=== PATIENT | female | born 1935 | race Caucasian/White ===

== ENCOUNTER 2016-10-15 15:33 | Inpatient (IN) | payer MEDICARE, OTHER, MEDICAID ==
--- NOTE | 2016-10-15 15:49 | ER Document Report ---
ED Medical Screen (RME) - General Chief Complaint: Breathing Difficulty Stated Complaint: DIFFICULTY BREATHING Mode of Arrival: Wheelchair Information source: Patient Notes: 81 y/o F presents to ED c/o sob over the last month. Reports is worse with exertion and laying down. Denies fever or chest pain. Shallow breaths in RME. I have greeted and performed a rapid initial assessment of this patient. A comprehensive ED assessment and evaluation of the patient, analysis of test results and completion of the medical decision making process will be conducted by additional ED providers. TRAVEL OUTSIDE OF THE [place] IN LAST 30 DAYS: No - Related Data Allergies/Adverse Reactions: No Known Allergies Allergy (Verified 10/15/16 15:40) Past Medical History - Social History Chew tobacco use (# tins/day): No Frequency of alcohol use: None Drug Abuse: None - Past Medical History Cardiac Medical History: Reports: Hx Hypertension Denies: Hx Coronary Artery Disease, Hx Heart Attack - BAD HEART VALVES, STENTS X5 Pulmonary Medical History: Reports: Hx COPD, Hx Pneumonia - HX Denies: Hx Asthma, Hx Bronchitis Neurological Medical History: Denies: Hx Cerebrovascular Accident, Hx Seizures Renal/ Medical History: Denies: Hx Peritoneal Dialysis Musculoskeltal Medical History: Reports Hx Arthritis Psychiatric Medical History: Denies: Hx Depression Past Surgical History: Reports: Hx Hysterectomy - Immunizations Hx Diphtheria, Pertussis, Tetanus Vaccination: Yes Physical Exam - General General appearance: Alert In distress: None - Respiratory Respiratory status: Labored - shallow Breath sounds: No: Rhonchi, Wheezing - Cardiovascular Rhythm: Regular Pulses: Normal: Radial Normal capillary refill: Yes - Neurological Neuro grossly intact: Yes Cognition: Normal Orientation: AAOx4 Causey Coma Scale Eye Opening: Spontaneous Cristopher Coma Scale Verbal: Oriented Cristopher Coma Scale Motor: Obeys Commands Causey Coma Scale Total: 15 Speech: Normal Motor strength normal: LUE, RUE, LLE, RLE
[2016-10-15 16:28] LABS: ABSOLUTE EOSINOPHILS # (AUTO) 0.1 10^3/uL (0.0-0.6); ABSOLUTE MONOCYTES (AUTO) 1.1 10^3/uL (0.1-1.4); ABSOLUTE NEUT (AUTO) 8.8 10^3/uL (1.7-8.2); BASOPHILS % (AUTO) 0.3 % (0-2); EOSINOPHILS % (AUTO) 1.2 % (0-6); HEMATOCRIT 34.6 % (36.0-47.0); HEMOGLOBIN 11.8 g/dL (12.0-15.5); HGB HCT DIFFERENCE 0.8; LYMPHOCYTES % (AUTO) 16.3 % (13-45); MEAN CORPUSCULAR HEMOGLOBIN 29.6 pg (27.0-33.4); MEAN CORPUSCULAR VOLUME 87 fl (80-97); MONOCYTES % (AUTO) 8.9 % (3-13); RED BLOOD COUNT 3.97 10^6/uL (3.72-5.28); RED CELL DISTRIBUTION WIDTH 14.1 % (11.5-14.0); SEGMENTED NEUTROPHILS % (AUTO) 73.3 % (42-78)
--- NOTE | 2016-10-15 16:32 | EKG REPORT ---
SEVERITY:- ABNORMAL ECG - SINUS RHYTHM MOST LIKELY.ARTIFACTS.REPEAT EKG. LEFT AXIS DEVIATION LEFT VENTRICULAR HYPERTROPHY : Confirmed by: Susie Amato MD 15-Oct-2016 16:32:22
[2016-10-15 16:37] LABS: ALANINE AMINOTRANSFERASE 26 U/L (9-52); ALBUMIN 4.2 g/dL (3.5-5.0); ALKALINE PHOSPHATASE 77 U/L (38-126); ANION GAP 14 (5-19); ASPARTATE AMINO TRANSFERASE 26 U/L (14-36); BILIRUBIN,TOTAL 0.8 mg/dL (0.2-1.3); BLOOD UREA NITROGEN 17 mg/dL (7-20); CALCIUM 9.7 mg/dL (8.4-10.2); CARBON DIOXIDE 24 mmol/L (22-30); CHLORIDE 103 mmol/L (98-107); CREATINE KINASE 48 U/L (30-135); CREATININE RESULT 0.71 mg/dL (0.52-1.25); GLUCOSE 130 mg/dL (75-110); POTASSIUM 3.5 mmol/L (3.6-5.0); SODIUM 140.5 mmol/L (137-145); TOTAL PROTEIN 7.5 g/dL (6.3-8.2)
[2016-10-15 16:49] LABS: CREATINE KINASE MB 0.43 ng/mL (<4.55)
[2016-10-15 16:53] LABS: TROPONIN I < 0.012 ng/mL
[2016-10-15] MEDS ORDERED: AZITHROMYCIN INJ 500 MG VIAL IV ONE (21:26)
[2016-10-15] MEDS ORDERED: CEFTRIAXONE 1 GM/D5W RTU 50 ML IV ONE (21:26)
--- NOTE | 2016-10-15 21:31 | ER Document Report ---
ED Respiratory Problem - General Chief Complaint: Breathing Difficulty Stated Complaint: DIFFICULTY BREATHING Time seen by provider: 21:29 Mode of Arrival: Wheelchair Information source: Patient Notes: This is a 81-year-old female with a history of hypertension, coronary artery disease (stents in the past), hypertension, diabetes, obstructive sleep apnea ( CPAP), iron deficiency anemia (followed by Dr. Wetzel for iron infusions). Patient was seen in the office today and appeared short of breath. She wasn't referred to the emergency room. Patient does report having subjective fevers and chills over the past few days and being progressively short of breath over the last week or 2. TRAVEL OUTSIDE OF THE [place] IN LAST 30 DAYS: No - HPI Patient complains to provider of: Short of breath Onset: Last week Duration: Worse/persistent Initiating Event: No: Allergy, Aspiration/Choking, Exertion, Exposure to chemicals, Exposure to dust, Exposure to fumes, Exposure to mold, Exposure to smoke, Out of meds, Sports/exercise, URI, Other Quality of pain: denies: No pain, Achy, Burning, Cramping, Dull, Fullness, Pressure, Sharp, Stabbing, Throbbing, Other Severity: None Pain Level: Denies Context: denies: DVT, Factor V Leiden, Hx asthma, Hx CHF, Hx COPD, Malignancy, , Recent cardiac event, Recent foreign travel, Recent long distance trvl , Recent immobilization, Recent surgery, Smoker, Other Short of Breath: Moderate Chest pain/discomfort: denies: Center, Constant, Heaviness, Intermittent, Left, Pain, Radiates to arm, Radiates to back, Radiates to jaw, Right, Tightness, Worse with deep breaths Cough: denies: Nonproductive, Productive, Stridor, Suspect aspiration Sputum amount: denies: None, Scant, Small, Moderate, Large, Copious Sputum color: denies: Brown, Clear, Creamy, Medrano, Green, Rising Star tinged, Red (blood ), Red Specks, Rust, Small Clots, Brar, White, Yellow At home treatment: denies: Bronchodilators, CPAP, Diuretics, Inhaled steroids, Oral steroids, Oxygen, Singulair, Theophylline EMS treatments: No: Bronchodilators, CPAP, Diuretics, Epinephrine, Nitrates, Oxygen, Solumedrol Associated symptoms: denies: None, Ankle/leg swelling, Allergy/hay fever, Anxiety, Bloody cough, Chest pain/discomfort, Chills, Congestion, Cough, Dental decay, Difficulty breathing, Earache, Extertional dyspnea, Facial pain, Fever, Headache, Heart racing, Hoarseness, Hurts to breathe, Hyperventilation, Jaw pain , Leg/calf/joint pain, Muscle spasms, Orthopnea, PND, Runny nose, Sinus pain/ pressure, Short of breath, Sore Throat, Sweaty, Tingling face, Tingling hands, Unable to swallow, Toothache, Wheezing, Other Similar symptoms previously: No Recently seen / treated by doctor: Yes - Related Data Allergies/Adverse Reactions: No Known Allergies Allergy (Verified 10/15/16 15:40) Past Medical History - General Information source: Patient - Social History Smoking Status: Never Smoker Chew tobacco use (# tins/day): No Frequency of alcohol use: None Drug Abuse: None Lives with: Family Family History: Reviewed & Not Pertinent Patient has suicidal ideation: No Patient has homicidal ideation: No - Past Medical History Cardiac Medical History: Reports: Hx Hypertension Denies: Hx Coronary Artery Disease, Hx Heart Attack - BAD HEART VALVES, STENTS X5 Pulmonary Medical History: Reports: Hx COPD, Hx Pneumonia - HX Denies: Hx Asthma, Hx Bronchitis Neurological Medical History: Denies: Hx Cerebrovascular Accident, Hx Seizures Renal/ Medical History: Denies: Hx Peritoneal Dialysis Musculoskeltal Medical History: Reports Hx Arthritis Psychiatric Medical History: Denies: Hx Depression Past Surgical History: Reports: Hx Hysterectomy - Immunizations Hx Diphtheria, Pertussis, Tetanus Vaccination: Yes Review of Systems - Review of Systems Constitutional: Chills, Fever EENT: No symptoms reported Cardiovascular: No symptoms reported Respiratory: See HPI Gastrointestinal: No symptoms reported Genitourinary: No symptoms reported Female Genitourinary: No symptoms reported Musculoskeletal: No symptoms reported Skin: No symptoms reported Hematologic/Lymphatic: No symptoms reported Neurological/Psychological: No symptoms reported Physical Exam - Vital signs Vitals: Pulse Ox 94 10/15/16 18:29 Notes: Physical exam: GENERAL: 81-year-old female, alert and oriented 3, pleasant, she appears dyspneic. Her oxygen saturation drops on room air after walking to 90%. She is to Neck. HEAD: Atraumatic, normocephalic. EYES: Pupils equal round and reactive to light, extraocular movements intact, sclera anicteric, conjunctiva are normal. ENT: TMs normal, nares patent, oropharynx clear without exudates. Moist mucous membranes. NECK: Normal range of motion, supple without lymphadenopathy or JVD. LUNGS: Tachypnea, crackles at the bases. HEART: Regular rate and rhythm without murmurs, rubs or gallops. ABDOMEN: Soft, normoactive bowel sounds. No tenderness to palpation. No guarding, no rebound. No masses appreciated. EXTREMITIES: Normal range of motion, no pitting or edema. No clubbing or cyanosis. NEUROLOGICAL: Cranial nerves II through XII grossly intact. Normal speech, normal gait. PSYCH: Normal mood, normal affect. SKIN: Warm, Dry, normal turgor, no rashes or lesions noted. Course - Re-evaluation Re-evalutation: 10/15/16 22:46 Note: This is a 81-year-old female with a history of coronary artery disease who was referred to the ER for shortness of breath. Patient does report progressively worsening shortness of breath over the past couple weeks. She does report fevers and chills at home with a nonproductive cough. Her respiratory rate is 30 at the time of my exam. Her oxygen saturations drop when she moves around to 90%. She did ambulate the ER to the bathroom and was quite tachypneic on arrival to her bed (5 feet from the bathroom) and was hypoxic (89%). CT of the chest shows a ground glass infiltrate consistent with pneumonia. The patient does have a leukocytosis of 12,000. Based upon how she looks (ill), the hypoxia and the pneumonia and x-ray, she will be admitted to the hospital for IV antibiotics. - Vital Signs Vital signs: Temp Pulse Resp BP Pulse Ox 33 H 92 10/15/16 20:01 10/15/16 20:01 - Laboratory Result Diagrams: 10/15/16 16:08 10/15/16 16:08 Laboratory results interpreted by me: 10/15/16 10/15/16 10/15/16 16:08 16:08 20:45 WBC 12.0 H Hgb 11.8 L Hct 34.6 L RDW 14.1 H Absolute Neutrophils 8.8 H Potassium 3.5 L Glucose 130 H Urine Protein 30 H Urine Blood SMALL H Ur Leukocyte Esterase LARGE H - EKG Interpretation by Me Rate: Normal Rhythm: NSR - EKG shows normal sinus rhythm with a ventricular rate of 63, left axis deviation, no acute ST-T wave changes. Critical Care Note - Critical Care Note Total time excluding time spent on procedures (mins): 60 Discharge - Discharge Clinical Impression: pneumonia, hypoxia Condition: Serious Disposition: ADMITTED INPATIENT Admitting Provider: [facility] Admitted: [facility]
[2016-10-15] MEDS ORDERED: GUAIFENESIN SYRP 200 MG/10 ML UDC PO PRN (21:33)
[2016-10-15] MEDS ORDERED: GLUCAGON,HUMAN RECOMB 1 MG INJ IM PRN (21:39)
[2016-10-15] MEDS ORDERED: DEXTROSE 40% GEL 15 GM TUBE PO PRN ×2 (21:39)
[2016-10-15] MEDS ORDERED: DEXTROSE 50%-WATER 25 GM/50 ML DISP.SYRIN IV PRN ×2 (21:39)
[2016-10-15 22:41] LABS: APPEARANCE,URINE SLIGHTLY-CLOUDY; BILIRUBIN,URINE NEGATIVE (NEGATIVE); GLUCOSE, URINE NEGATIVE (NEGATIVE); KETONES,URINE NEGATIVE (NEGATIVE); LEUKOCYTE ESTERASE,URINE LARGE (NEGATIVE); NITRITE,URINE NEGATIVE (NEGATIVE); PROTEIN,URINE 30 mg/dL (NEGATIVE); URINE SPECIFIC GRAVITY 1.018; UROBILINOGEN,URINE NEGATIVE mg/dL (<2.0)
[2016-10-15] MEDS: GUAIFENESIN 600 MG TABLET.SA PO SCH (23:03)
[2016-10-15] MEDS: ATORVASTATIN CALCIUM 40 MG TABLET PO SCH (23:04)
[2016-10-15] MEDS: FAMOTIDINE 20 MG TABLET PO SCH (23:04)
[2016-10-15 23:34] LABS: CREATINE KINASE MB 0.46 ng/mL (<4.55); TROPONIN I 0.027 ng/mL
[2016-10-16] MEDS: IPRATROPIUM/ALBUTEROL 0.5-2.5 MG/3 ML AMPUL NEB SCH ×7 (00:04→23:19)
[2016-10-16 00:20] LABS: ARTERIAL BLOOD BASE EXCESS -0.2 mmol/L; ARTERIAL BLOOD O2 SATURATION 97.5 % (94-98)
[2016-10-16 05:12] LABS: ABSOLUTE EOSINOPHILS # (AUTO) 0.2 10^3/uL (0.0-0.6); ABSOLUTE LYMPHOCYTES (AUTO) 1.9 10^3/uL (0.5-4.7); ABSOLUTE MONOCYTES (AUTO) 1.1 10^3/uL (0.1-1.4); ABSOLUTE NEUT (AUTO) 7.5 10^3/uL (1.7-8.2); BASOPHILS % (AUTO) 0.3 % (0-2); EOSINOPHILS % (AUTO) 1.5 % (0-6); HEMATOCRIT 32.1 % (36.0-47.0); HGB HCT DIFFERENCE 0.9; LYMPHOCYTES % (AUTO) 18.2 % (13-45); MEAN CORPUSCULAR HEMOGLOBIN 29.9 pg (27.0-33.4); MEAN CORPUSCULAR HGB CONC 34.2 g/dL (32.0-36.0); MEAN CORPUSCULAR VOLUME 87 fl (80-97); MONOCYTES % (AUTO) 10.1 % (3-13); RED BLOOD COUNT 3.68 10^6/uL (3.72-5.28); RED CELL DISTRIBUTION WIDTH 14.3 % (11.5-14.0); SEGMENTED NEUTROPHILS % (AUTO) 69.9 % (42-78); WHITE BLOOD COUNT 10.7 10^3/uL (4.0-10.5)
[2016-10-16 05:32] LABS: ALANINE AMINOTRANSFERASE 32 U/L (9-52); ALBUMIN 3.5 g/dL (3.5-5.0); ALKALINE PHOSPHATASE 68 U/L (38-126); ANION GAP 14 (5-19); ASPARTATE AMINO TRANSFERASE 26 U/L (14-36); BILIRUBIN,TOTAL 0.6 mg/dL (0.2-1.3); BLOOD UREA NITROGEN 17 mg/dL (7-20); CARBON DIOXIDE 22 mmol/L (22-30); CHLORIDE 104 mmol/L (98-107); CREATINE KINASE 248 U/L (30-135); CREATININE RESULT 0.83 mg/dL (0.52-1.25); GLUCOSE 199 mg/dL (75-110); POTASSIUM 3.7 mmol/L (3.6-5.0); SODIUM 139.5 mmol/L (137-145); TOTAL PROTEIN 6.6 g/dL (6.3-8.2)
[2016-10-16 06:00] LABS: TROPONIN I < 0.012 ng/mL
--- NOTE | 2016-10-16 08:04 | PDOC H&P ---
History of Present Illness Admission Date/PCP: 10/15/16 21:33 ABBI HERNANDEZ MD Patient complains of: sob History of Present Illness: SRAVAN SKY is a 81 year old female This is a 81-year-old female with the history of the type II diabetes/ hypertension/coronary artery disease status post stent placement /COPD/and heart -valve problems and a history of anemia went to see her Dr. Gaspar for her anemia follow-up and he noticed that patient's was breathing very heavily and he called me and send the patient to the emergency department with the patient have a CT angiogram was done and was negative for pulmonary embolism but positive for the pneumonia. When I saw the patient in the ER patient's was still little bit respiratory rate is high but other than that no any acute distress patient's denied any chest pain. Patient was complains of cough and congestions for last several weeks. Patient also see her Dr. LEWIS as office and told her that she has some valve problems and she is not candidate for any procedures. This and also see her Dr. sneed as outpatient for COPD and the lung issues. Patient also see her Dr. Seay as outpatient patient's for the anemia and also gastric problem patient's never smoke Past Medical History Cardiac Medical History: Reports: Hypertension Denies: Coronary Artery Disease, Myocardial Infarction - BAD HEART VALVES, STENTS X5 Pulmonary Medical History: Reports: Chronic Obstructive Pulmonary Disease (COPD) , Pneumonia - HX Denies: Asthma, Bronchitis Neurological Medical History: Denies: Seizures Endocrine Medical History: Reports: Diabetes Mellitus Type 2 GI Medical History: Reports: Gastroesophageal Reflux Disease Musculoskeltal Medical History: Reports: Arthritis Psychiatric Medical History: Denies: Depression Hematology: Reports: Anemia Past Surgical History Past Surgical History: Reports: Cardiac Catheterization, Coronary Stent, Hysterectomy Social History Lives with: Family Smoking Status: Never Smoker Frequency of Alcohol Use: None Hx Recreational Drug Use: No Hx Prescription Drug Abuse: No Family History Family History: Reviewed & Not Pertinent Parental Family History Reviewed: Yes Children Family History Reviewed: Yes Sibling(s) Family History Reviewed.: Yes Medication/Allergy Allergies/Adverse Reactions: No Known Allergies Allergy (Verified 10/15/16 15:40) Review of Systems Constitutional: ABSENT: chills, fever(s), headache(s), weight gain, weight loss Eyes: ABSENT: visual disturbances Ears: ABSENT: hearing changes Cardiovascular: PRESENT: dyspnea on exertion. ABSENT: chest pain, edema, orthropnea, palpitations Respiratory: ABSENT: cough, hemoptysis Gastrointestinal: ABSENT: abdominal pain, constipation, diarrhea, hematemesis, hematochezia, nausea, vomiting Genitourinary: ABSENT: dysuria, hematuria Musculoskeletal: ABSENT: joint swelling Integumentary: ABSENT: rash, wounds Neurological: ABSENT: abnormal gait, abnormal speech, confusion, dizziness, focal weakness, syncope Psychiatric: ABSENT: anxiety, depression, homidical ideation, suicidal ideation Endocrine: ABSENT: cold intolerance, heat intolerance, menstrual abnormalities, polydipsia, polyuria Hematologic/Lymphatic: ABSENT: easy bleeding, easy bruising, lymphadenopathy Physical Exam Vital Signs: Temp Pulse Resp BP Pulse Ox 65 26 H 157/50 H 97 10/16/16 04:08 10/16/16 07:19 10/16/16 07:19 10/16/16 07:19 General appearance: PRESENT: no acute distress Head exam: PRESENT: normocephalic Eye exam: PRESENT: PERRLA Mouth exam: PRESENT: neck supple Neck exam: ABSENT: carotid bruit, full ROM, JVD, lymphadenopathy, meningismus, tenderness, thyromegaly, tracheal deviation, tracheostomy, other Respiratory exam: PRESENT: decreased breath sounds. ABSENT: rales, rhonchi, wheezes Cardiovascular exam: PRESENT: +S1, +S2 GI/Abdominal exam: PRESENT: normal bowel sounds, soft. ABSENT: tenderness Extremities exam: ABSENT: pedal edema Neurological exam: PRESENT: alert, awake, oriented to person, oriented to place , oriented to time, oriented to situation Psychiatric exam: PRESENT: anxious Skin exam: PRESENT: dry Results Laboratory Results: 10/16/16 05:05 10/16/16 05:05 10/15/16 10/16/16 10/16/16 23:55 05:05 05:05 WBC 10.7 H RBC 3.68 L Hgb 11.0 L Hct 32.1 L MCV 87 MCH 29.9 MCHC 34.2 RDW 14.3 H Plt Count 277 Seg Neutrophils % 69.9 Lymphocytes % 18.2 Monocytes % 10.1 Eosinophils % 1.5 Basophils % 0.3 Absolute Neutrophils 7.5 Absolute Lymphocytes 1.9 Absolute Monocytes 1.1 Absolute Eosinophils 0.2 Absolute Basophils 0.0 Carbonic Acid 0.95 L HCO3/H2CO3 Ratio 23:1 ABG pH 7.47 H ABG pCO2 31.6 L ABG pO2 91.7 ABG HCO3 22.7 ABG O2 Saturation 97.5 ABG Base Excess -0.2 FiO2 3L Sodium 139.5 Potassium 3.7 Chloride 104 Carbon Dioxide 22 Anion Gap 14 BUN 17 Creatinine 0.83 Est GFR ( Amer) > 60 Est GFR (Non-Af Amer) > 60 Glucose 199 H Calcium 9.0 Total Bilirubin 0.6 AST 26 ALT 32 Alkaline Phosphatase 68 Total Protein 6.6 Albumin 3.5 10/15/16 10/15/16 10/16/16 22:57 22:57 05:05 Creatine Kinase 54 248 H CK-MB (CK-2) 0.46 Troponin I 0.027 NT-Pro-B Natriuret Pep 10/16/16 05:05 Creatine Kinase CK-MB (CK-2) 1.70 Troponin I < 0.012 NT-Pro-B Natriuret Pep 1040 H Impressions: Chest X-Ray 10/15/16 15:45 IMPRESSION: NO SIGNIFICANT RADIOGRAPHIC FINDING IN THE CHEST. Chest/Abdomen CTA 10/15/16 18:54 IMPRESSION: Increased patchy airspace disease and ground-glass opacities in the right lower lobe. Increased interstitial prominence bilaterally. . NO PULMONARY EMBOLI. Assessment & Plan - Diagnosis (1) Respiratory failure Qualifiers: Chronicity: acute Is this a current diagnosis for this admission?: YesPlan: Most likely due to the COPD and underlying pneumonia. We consulted the pulmonary for further evaluations We will also get the ABG (2) COPD with acute exacerbation Is this a current diagnosis for this admission?: YesPlan: Patient does not have any wheezing but patient's respiratory rate is high continues to nebulizer treatments (3) Pneumonia Qualifiers: Pneumonia type: due to unspecified organism Is this a current diagnosis for this admission?: YesPlan: Start the patient on IV cefepime and the Levaquin (4) Coronary artery disease Qualifiers: Coronary Disease-Associated Artery/Lesion type: unspecified vessel or lesion type Is this a current diagnosis for this admission?: YesPlan: We'll get the cardiac enzymes 3 and echocardiograms and will get the record from Dr. Amato's office (5) Benign hypertension Is this a current diagnosis for this admission?: YesPlan: Stable continues the current medications (6) Type II diabetes mellitus Qualifiers: Diabetes mellitus complication status: with unspecified complications Is this a current diagnosis for this admission?: YesPlan: Continues a sliding scale (7) Morbid obesity Qualifiers: Obesity type: unspecified obesity type Qualified Code(s): E66.01 - Morbid (severe) obesity due to excess calories Is this a current diagnosis for this admission?: YesPlan: We discussed the diet plan (8) Anemia Qualifiers: Anemia type: unspecified type Qualified Code(s): D64.9 - Anemia, unspecified Is this a current diagnosis for this admission?: YesPlan: Out patient's hematologic - Time Time Spent: 30 to 50 Minutes Medications reviewed and adjusted accordingly: Yes Anticipated discharge: Home, Other Within: Other - Inpatient Certification Medical Necessity: Significant Comorbidiites Make Outpatient Treatment Too Risky , Need Close Monitoring Due to Risk of Patient Decompensation, Need for IV Antibiotics Post Hospital Care: D/C Senior Patient Account Representative Documentation - Plan Summary Plan Summary: Very extensive discussions with the patient's and the will start the patient on IV antibiotic respiratory treatments and further cardiac workup and pulmonary workup. Patient have a family with the sister who she likes to communicate and will inform her of the patient's conditions. Discussed with the E ER nurse about the patient's medications update and also will contact the family
[2016-10-16] MEDS ORDERED: (PENDING PHARMACY ID) (Sertraline Hcl [Zoloft] 25 MG) PO SCH (10:00)
[2016-10-16] MEDS ORDERED: CEFTRIAXONE 1 GM/D5W RTU 50 ML IV SCH (10:00)
[2016-10-16] MEDS ORDERED: (PENDING PHARMACY ID) (Cetirizine Hcl [Zyrtec] 10 MG) PO SCH (10:00)
[2016-10-16] MEDS ORDERED: (PENDING PHARMACY ID) (Telmisartan/Hydrochlorothiazid [Micardis Hct 80-25 Mg Tablet] 1 EAC PO SCH (10:00)
[2016-10-16] MEDS: FAMOTIDINE 20 MG TABLET PO SCH ×2 (10:34→21:20)
[2016-10-16] MEDS: SITAGLIPTIN PHOSPHATE 50 MG TABLET PO SCH (10:34)
[2016-10-16] MEDS: CEFEPIME 1 GM/D5W RTU 50 ML IV SCH ×2 (10:34→21:20)
[2016-10-16] MEDS: GUAIFENESIN 600 MG TABLET.SA PO SCH ×2 (10:35→21:20)
[2016-10-16] MEDS: LOSARTAN POTASSIUM 50 MG TABLET PO SCH (10:35)
[2016-10-16] MEDS: ATENOLOL 50 MG TABLET PO SCH (10:36)
[2016-10-16] MEDS: AMLODIPINE BESYLATE 10 MG TABLET PO SCH (10:36)
[2016-10-16] MEDS: LANSOPRAZOLE 15 MG TAB.RAP.DR PO SCH (10:36)
[2016-10-16] MEDS: CETIRIZINE 10 MG TABLET PO SCH (10:36)
[2016-10-16] MEDS: HYDROCHLOROTHIAZIDE 25 MG TABLET PO SCH (10:37)
[2016-10-16] MEDS: SERTRALINE HCL 50 MG TABLET PO SCH (10:37)
[2016-10-16] MEDS: ENOXAPARIN SODIUM INJ 40 MG/0.4 ML DISP.SYRIN SUBCUT SCH (10:42)
[2016-10-16 11:38] LABS: TROPONIN I < 0.012 ng/mL
[2016-10-16] MEDS: LEVOFLOXACIN 500 MG/D5W RTU 100 ML IV SCH (11:44)
[2016-10-16] MEDS: INSULIN LISPRO 100 UNIT/ML 3 ML VIAL SUBCUT PRN ×2 (11:45→22:59)
--- NOTE | 2016-10-16 12:00 | XCELERA REPORT ---
[address] [id number] Transthoracic Echocardiogram Report Name: SRAVAN SKY Age: 81 yrs Gender: Female : 1935 Patient Status: Inpatient Patient Location: \S\08\S\A Study Date: 10/16/2016 09:48 AM Height: 63 in Weight: 205 lb BSA: 2.0 m2 Procedure: A complete two-dimensional transthoracic echocardiogram was performed (2D, M-mode, spectral and color flow Doppler). The study was technically adequate with some images being suboptimal in quality. Reason For Study: sob/chf Ordering Physician: CELESTE MELCHOR Performed By: Miriam Fitch Interpretation Summary The left ventricular ejection fraction is normal. There is mild concentric left ventricular hypertrophy. The left ventricle is grossly normal size. Doppler measurements suggest pseudonormalized left ventricular relaxation, which is associated with grade II/IV or mild to moderate diastolic dysfunction Wall motion cannot be accurately commented on, but no definite regional wall motion abnormalities noted. The right ventricle is mildly dilated. The right ventricular systolic function is normal. The right atrium is normal in size The left atrium is mildly dilated. There is a mild amount of mitral regurgitation There is no aortic valve stenosis There is a trace amount of aortic regurgitation There is a trace to mild amount of tricuspid regurgitation There is mild to moderate pulmonary hypertension by echo Right ventricular systolic pressure is estimated to be elevated at 40- 50mmHg. The aortic root is not well visualized but is probably normal size. The inferior vena cava was not well visualized There is no pericardial effusion. MMode/2D Measurements \T\ Calculations RVDd: 3.3 cm LVIDd: 4.4 cm FS: 33.5 % Ao root diam: 2.2 cm IVSd: 1.1 cm LVIDs: 2.9 cm EDV(Teich): 85.7 ml LVPWd: 1.1 cm ESV(Teich): 32.2 ml Ao root area: 3.9 cm2 EF(Teich): 62.4 % LA dimension: 4.4 cm Doppler Measurements \T\ Calculations MV E max leatha: MV P1/2t max leatha: Ao V2 max: LV V1 max P.7 cm/sec 137.1 cm/sec 198.8 cm/sec 8.4 mmHg MV A max leatha: MV P1/2t: 79.2 msec Ao max PG: LV V1 max: 129.6 cm/sec 15.8 mmHg 144.7 cm/sec MV E/A: 1.0 MVA(P1/2t): 2.8 cm2 MV dec slope: 507.3 cm/sec2 MV dec time: 0.26 sec PA V2 max: TR max leatha: 134.4 cm/sec 319.0 cm/sec PA max PG: TR max P.7 mmHg 7.2 mmHg Left Ventricle The left ventricle is grossly normal size. There is mild concentric left ventricular hypertrophy. The left ventricular ejection fraction is normal. Doppler measurements suggest pseudonormalized left ventricular relaxation, which is associated with grade II/IV or mild to moderate diastolic dysfunction. Wall motion cannot be accurately commented on, but no definite regional wall motion abnormalities noted. Right Ventricle The right ventricle is mildly dilated. The right ventricle appears to be hypertrophied. The right ventricular systolic function is normal. Atria The right atrium is normal in size. The left atrium is mildly dilated. Interarterial septum not well visualized and not well dopplered. Cannot comment on ASD/PFO presence. Mitral Valve There is mild mitral leaflet calcification. There is mild mitral annular calcification. There is no evidence of mitral valve prolapse. There is no mitral valve stenosis. There is a mild amount of mitral regurgitation. Aortic Valve The aortic valve is mildly calcified. There is no aortic valve stenosis. There is a trace amount of aortic regurgitation. Tricuspid Valve The tricuspid valve is not well visualized, but is grossly normal. There is no tricuspid stenosis. There is a trace to mild amount of tricuspid regurgitation. There is mild to moderate pulmonary hypertension by echo. Right ventricular systolic pressure is estimated to be elevated at 40- 50mmHg. Pulmonic Valve The pulmonic valve is not well visualized. Great Vessels The aortic root is not well visualized but is probably normal size. The inferior vena cava was not well visualized. Effusions There is no pericardial effusion. : CELESTE MELCHOR > Amanda Smith
[2016-10-16 18:07] LABS: CREATINE KINASE MB 2.32 ng/mL (<4.55)
[2016-10-16 18:09] LABS: TROPONIN I < 0.012 ng/mL
[2016-10-16] MEDS: ATORVASTATIN CALCIUM 40 MG TABLET PO SCH (21:20)
[2016-10-17] MEDS: IPRATROPIUM/ALBUTEROL 0.5-2.5 MG/3 ML AMPUL NEB SCH ×5 (04:34→20:46)
[2016-10-17 07:22] LABS: ABSOLUTE EOSINOPHILS # (AUTO) 0.4 10^3/uL (0.0-0.6); ABSOLUTE LYMPHOCYTES (AUTO) 1.6 10^3/uL (0.5-4.7); ABSOLUTE MONOCYTES (AUTO) 1.1 10^3/uL (0.1-1.4); ABSOLUTE NEUT (AUTO) 7.4 10^3/uL (1.7-8.2); BASOPHILS % (AUTO) 0.3 % (0-2); EOSINOPHILS % (AUTO) 3.4 % (0-6); HEMATOCRIT 29.2 % (36.0-47.0); HEMOGLOBIN 10.1 g/dL (12.0-15.5); HGB HCT DIFFERENCE 1.1; LYMPHOCYTES % (AUTO) 15.3 % (13-45); MEAN CORPUSCULAR HEMOGLOBIN 30.4 pg (27.0-33.4); MEAN CORPUSCULAR HGB CONC 34.7 g/dL (32.0-36.0); MEAN CORPUSCULAR VOLUME 88 fl (80-97); MONOCYTES % (AUTO) 10.5 % (3-13); RED BLOOD COUNT 3.33 10^6/uL (3.72-5.28); RED CELL DISTRIBUTION WIDTH 14.7 % (11.5-14.0); SEGMENTED NEUTROPHILS % (AUTO) 70.5 % (42-78); WHITE BLOOD COUNT 10.6 10^3/uL (4.0-10.5)
[2016-10-17 07:43] LABS: ALANINE AMINOTRANSFERASE 30 U/L (9-52); ALBUMIN 3.4 g/dL (3.5-5.0); ALKALINE PHOSPHATASE 70 U/L (38-126); ANION GAP 13 (5-19); ASPARTATE AMINO TRANSFERASE 27 U/L (14-36); BILIRUBIN,TOTAL 0.4 mg/dL (0.2-1.3); BLOOD UREA NITROGEN 18 mg/dL (7-20); CALCIUM 9.1 mg/dL (8.4-10.2); CARBON DIOXIDE 22 mmol/L (22-30); CHLORIDE 105 mmol/L (98-107); CREATININE RESULT 0.87 mg/dL (0.52-1.25); GLUCOSE 186 mg/dL (75-110); POTASSIUM 3.7 mmol/L (3.6-5.0); SODIUM 139.5 mmol/L (137-145); TOTAL PROTEIN 6.4 g/dL (6.3-8.2)
[2016-10-17] MEDS: INSULIN LISPRO 100 UNIT/ML 3 ML VIAL SUBCUT PRN ×2 (08:30→11:55)
[2016-10-17] MEDS: ENOXAPARIN SODIUM INJ 40 MG/0.4 ML DISP.SYRIN SUBCUT SCH (08:30)
[2016-10-17] MEDS: LOSARTAN POTASSIUM 50 MG TABLET PO SCH (10:35)
[2016-10-17] MEDS: ATENOLOL 50 MG TABLET PO SCH (10:36)
[2016-10-17] MEDS: AMLODIPINE BESYLATE 10 MG TABLET PO SCH (10:37)
[2016-10-17] MEDS: SITAGLIPTIN PHOSPHATE 50 MG TABLET PO SCH (10:37)
[2016-10-17] MEDS: HYDROCHLOROTHIAZIDE 25 MG TABLET PO SCH (10:37)
[2016-10-17] MEDS: CETIRIZINE 10 MG TABLET PO SCH (10:38)
[2016-10-17] MEDS: GUAIFENESIN 600 MG TABLET.SA PO SCH ×2 (10:38→22:16)
[2016-10-17] MEDS: SERTRALINE HCL 50 MG TABLET PO SCH (10:38)
[2016-10-17] MEDS: LANSOPRAZOLE 15 MG TAB.RAP.DR PO SCH (10:38)
[2016-10-17] MEDS: LEVOFLOXACIN 500 MG/D5W RTU 100 ML IV SCH (10:39)
[2016-10-17] MEDS: FAMOTIDINE 20 MG TABLET PO SCH ×2 (10:39→22:15)
[2016-10-17] MEDS: CEFEPIME 1 GM/D5W RTU 50 ML IV SCH ×2 (10:46→22:14)
[2016-10-17] MEDS: HYDROCODONE BIT/HOMATROPINE 5-1.5 MG TABLET PO PRN (18:24)
[2016-10-17] MEDS: ATORVASTATIN CALCIUM 40 MG TABLET PO SCH (22:15)
[2016-10-18] MEDS: IPRATROPIUM/ALBUTEROL 0.5-2.5 MG/3 ML AMPUL NEB SCH ×7 (00:02→23:42)
[2016-10-18] MEDS: HYDROCODONE BIT/HOMATROPINE 5-1.5 MG TABLET PO PRN (01:26)
[2016-10-18 04:31] LABS: ABSOLUTE EOSINOPHILS # (AUTO) 0.4 10^3/uL (0.0-0.6); ABSOLUTE LYMPHOCYTES (AUTO) 1.6 10^3/uL (0.5-4.7); ABSOLUTE MONOCYTES (AUTO) 1.1 10^3/uL (0.1-1.4); ABSOLUTE NEUT (AUTO) 6.3 10^3/uL (1.7-8.2); BASOPHILS % (AUTO) 0.5 % (0-2); EOSINOPHILS % (AUTO) 3.8 % (0-6); HEMATOCRIT 29.1 % (36.0-47.0); HEMOGLOBIN 9.8 g/dL (12.0-15.5); HGB HCT DIFFERENCE 0.3; LYMPHOCYTES % (AUTO) 17.4 % (13-45); MEAN CORPUSCULAR HEMOGLOBIN 29.8 pg (27.0-33.4); MEAN CORPUSCULAR HGB CONC 33.7 g/dL (32.0-36.0); MEAN CORPUSCULAR VOLUME 88 fl (80-97); MONOCYTES % (AUTO) 11.8 % (3-13); RED BLOOD COUNT 3.29 10^6/uL (3.72-5.28); RED CELL DISTRIBUTION WIDTH 14.1 % (11.5-14.0); SEGMENTED NEUTROPHILS % (AUTO) 66.5 % (42-78); WHITE BLOOD COUNT 9.5 10^3/uL (4.0-10.5)
[2016-10-18 04:50] LABS: ALANINE AMINOTRANSFERASE 29 U/L (9-52); ALBUMIN 3.2 g/dL (3.5-5.0); ALKALINE PHOSPHATASE 65 U/L (38-126); ANION GAP 14 (5-19); ASPARTATE AMINO TRANSFERASE 25 U/L (14-36); BILIRUBIN,TOTAL 0.5 mg/dL (0.2-1.3); BLOOD UREA NITROGEN 18 mg/dL (7-20); CALCIUM 9.2 mg/dL (8.4-10.2); CARBON DIOXIDE 23 mmol/L (22-30); CHLORIDE 103 mmol/L (98-107); CREATININE RESULT 0.96 mg/dL (0.52-1.25); GLUCOSE 140 mg/dL (75-110); POTASSIUM 4.3 mmol/L (3.6-5.0); SODIUM 139.6 mmol/L (137-145); TOTAL PROTEIN 6.2 g/dL (6.3-8.2)
[2016-10-18] MEDS: AMLODIPINE BESYLATE 10 MG TABLET PO SCH (10:00)
[2016-10-18] MEDS: GUAIFENESIN 600 MG TABLET.SA PO SCH ×2 (10:00→21:26)
[2016-10-18] MEDS: FAMOTIDINE 20 MG TABLET PO SCH ×2 (10:01→21:26)
[2016-10-18] MEDS: SERTRALINE HCL 50 MG TABLET PO SCH (10:01)
[2016-10-18] MEDS: ATENOLOL 50 MG TABLET PO SCH (10:01)
[2016-10-18] MEDS: CETIRIZINE 10 MG TABLET PO SCH (10:01)
[2016-10-18] MEDS: SITAGLIPTIN PHOSPHATE 50 MG TABLET PO SCH (10:02)
[2016-10-18] MEDS: HYDROCHLOROTHIAZIDE 25 MG TABLET PO SCH (10:02)
[2016-10-18] MEDS: LOSARTAN POTASSIUM 50 MG TABLET PO SCH (10:02)
[2016-10-18] MEDS: ENOXAPARIN SODIUM INJ 40 MG/0.4 ML DISP.SYRIN SUBCUT SCH (10:03)
[2016-10-18] MEDS: LANSOPRAZOLE 15 MG TAB.RAP.DR PO SCH (10:03)
[2016-10-18] MEDS: CEFEPIME 1 GM/D5W RTU 50 ML IV SCH ×2 (10:04→21:26)
[2016-10-18] MEDS: LEVOFLOXACIN 500 MG/D5W RTU 100 ML IV SCH (10:05)
--- NOTE | 2016-10-18 10:53 | PDOC PROGRESS REPORT ---
Subjective Progress Note for:: 10/18/16 Subjective:: Patient is doing fair still feeling weak but denied any chest pain no shortness of the breath still have a coughing spell Physical Exam Vital Signs: Temp Pulse Resp BP Pulse Ox 98.4 F 70 16 135/42 H 94 10/18/16 07:04 10/18/16 08:33 10/18/16 08:33 10/18/16 07:04 10/18/16 08:33 Intake & Output 10/17/16 10/18/16 10/19/16 06:59 06:59 06:59 Intake Total 1708 1244 Balance 1708 1244 Weight 95.4 kg 93.2 kg General appearance: PRESENT: no acute distress, well-developed, well-nourished Head exam: PRESENT: atraumatic, normocephalic Eye exam: PRESENT: conjunctiva pink, EOMI, PERRLA. ABSENT: scleral icterus Ear exam: PRESENT: normal external ear exam Mouth exam: PRESENT: moist, tongue midline Neck exam: PRESENT: full ROM. ABSENT: carotid bruit, JVD, lymphadenopathy, thyromegaly Respiratory exam: PRESENT: wheezes Cardiovascular exam: PRESENT: RRR. ABSENT: diastolic murmur, rubs, systolic murmur Pulses: PRESENT: normal dorsalis pedis pul, +2 pedal pulses bilateral Vascular exam: PRESENT: normal capillary refill GI/Abdominal exam: PRESENT: normal bowel sounds, soft. ABSENT: distended, guarding, mass, organolmegaly, rebound, tenderness Rectal exam: PRESENT: deferred Neurological exam: PRESENT: alert, awake, oriented to person, oriented to place , oriented to time, oriented to situation, CN II-XII grossly intact. ABSENT: motor sensory deficit Psychiatric exam: PRESENT: appropriate affect, normal mood. ABSENT: homicidal ideation, suicidal ideation Skin exam: PRESENT: dry, intact, warm. ABSENT: cyanosis, rash Results Laboratory Results: 10/18/16 03:42 10/18/16 03:42 10/18/16 10/18/16 03:42 03:42 WBC 9.5 RBC 3.29 L Hgb 9.8 L Hct 29.1 L MCV 88 MCH 29.8 MCHC 33.7 RDW 14.1 H Plt Count 286 Seg Neutrophils % 66.5 Lymphocytes % 17.4 Monocytes % 11.8 Eosinophils % 3.8 Basophils % 0.5 Absolute Neutrophils 6.3 Absolute Lymphocytes 1.6 Absolute Monocytes 1.1 Absolute Eosinophils 0.4 Absolute Basophils 0.0 Sodium 139.6 Potassium 4.3 Chloride 103 Carbon Dioxide 23 Anion Gap 14 BUN 18 Creatinine 0.96 Est GFR ( Amer) > 60 Est GFR (Non-Af Amer) 56 L Glucose 140 H Calcium 9.2 Total Bilirubin 0.5 AST 25 ALT 29 Alkaline Phosphatase 65 Total Protein 6.2 L Albumin 3.2 L 10/16/16 11:45 Sputum Gram Stain - Final 10/16/16 11:45 Sputum Sputum Culture - Final C.albicans/C.dubliniensis Normal Carmen 10/15/16 10/15/16 10/16/16 22:57 22:57 05:05 Creatine Kinase 54 248 H CK-MB (CK-2) 0.46 Troponin I 0.027 NT-Pro-B Natriuret Pep 10/16/16 10/16/16 10/16/16 05:05 10:49 10:49 Creatine Kinase 430 H CK-MB (CK-2) 1.70 2.30 Troponin I < 0.012 < 0.012 NT-Pro-B Natriuret Pep 1040 H 10/16/16 10/16/16 17:18 17:18 Creatine Kinase 475 H CK-MB (CK-2) 2.32 Troponin I < 0.012 NT-Pro-B Natriuret Pep Impressions: Chest/Abdomen CTA 10/15/16 18:54 IMPRESSION: Increased patchy airspace disease and ground-glass opacities in the right lower lobe. Increased interstitial prominence bilaterally. . NO PULMONARY EMBOLI. Chest X-Ray 10/17/16 00:00 IMPRESSION: NO ACUTE RADIOGRAPHIC FINDING IN THE CHEST. Assessment & Plan - Diagnosis (1) Respiratory failure Qualifiers: Chronicity: acute Is this a current diagnosis for this admission?: YesPlan: Most likely due to the COPD and underlying pneumonia. We consulted the pulmonary for further evaluations We will also get the ABG (2) COPD with acute exacerbation Is this a current diagnosis for this admission?: YesPlan: Start the patient and the steroid (3) Pneumonia Qualifiers: Pneumonia type: due to unspecified organism Is this a current diagnosis for this admission?: YesPlan: Start the patient on IV cefepime and the Levaquin (4) Coronary artery disease Qualifiers: Coronary Disease-Associated Artery/Lesion type: unspecified vessel or lesion type Is this a current diagnosis for this admission?: YesPlan: We'll get the cardiac enzymes 3 and echocardiograms and will get the record from Dr. Amato's office (5) Benign hypertension Is this a current diagnosis for this admission?: YesPlan: Stable continues the current medications (6) Type II diabetes mellitus Qualifiers: Diabetes mellitus complication status: with unspecified complications Is this a current diagnosis for this admission?: YesPlan: Continues a sliding scale (7) Morbid obesity Qualifiers: Obesity type: unspecified obesity type Qualified Code(s): E66.01 - Morbid (severe) obesity due to excess calories Is this a current diagnosis for this admission?: YesPlan: We discussed the diet plan (8) Anemia Qualifiers: Anemia type: unspecified type Qualified Code(s): D64.9 - Anemia, unspecified Is this a current diagnosis for this admission?: Yes - Time Time Spent with patient: 15-24 minutes Medications reviewed and adjusted accordingly: Yes Anticipated discharge: SNF Within: Other - Inpatient Certification Medical Necessity: Need Close Monitoring Due to Risk of Patient Decompensation, Need for IV Antibiotics Post Hospital Care: D/C Director Veterinary Documentation - Plan Summary Plan Summary: Document Imaging Specialist IV antibiotic and add the Diflucan by mouth with the possible candidiasis in the sputum and also at the physical therapy and consult the discharge problem possible rehabilitation placement
[2016-10-18] MEDS ORDERED: PREDNISONE 20 MG TABLET PO ONE (11:00)
[2016-10-18] MEDS: INSULIN LISPRO 100 UNIT/ML 3 ML VIAL SUBCUT PRN ×3 (12:07→21:36)
[2016-10-18] MEDS: FLUCONAZOLE 100 MG TABLET PO SCH (12:07)
[2016-10-18] MEDS: PREDNISONE 20 MG TABLET PO SCH (17:11)
[2016-10-18] MEDS: ATORVASTATIN CALCIUM 40 MG TABLET PO SCH (21:26)
[2016-10-19] MEDS: IPRATROPIUM/ALBUTEROL 0.5-2.5 MG/3 ML AMPUL NEB SCH ×5 (04:08→20:07)
[2016-10-19 06:09] LABS: ABSOLUTE MONOCYTES (AUTO) 0.7 10^3/uL (0.1-1.4); ABSOLUTE NEUT (AUTO) 9.9 10^3/uL (1.7-8.2); BASOPHILS % (AUTO) 0.3 % (0-2); EOSINOPHILS % (AUTO) 0.2 % (0-6); HEMATOCRIT 31.5 % (36.0-47.0); HEMOGLOBIN 10.4 g/dL (12.0-15.5); HGB HCT DIFFERENCE -0.3; LYMPHOCYTES % (AUTO) 8.3 % (13-45); MEAN CORPUSCULAR HEMOGLOBIN 29.3 pg (27.0-33.4); MEAN CORPUSCULAR HGB CONC 32.9 g/dL (32.0-36.0); MEAN CORPUSCULAR VOLUME 89 fl (80-97); MONOCYTES % (AUTO) 5.8 % (3-13); RED BLOOD COUNT 3.54 10^6/uL (3.72-5.28); RED CELL DISTRIBUTION WIDTH 14.1 % (11.5-14.0); SEGMENTED NEUTROPHILS % (AUTO) 85.4 % (42-78); WHITE BLOOD COUNT 11.6 10^3/uL (4.0-10.5)
[2016-10-19 06:22] LABS: ANION GAP 15 (5-19); BLOOD UREA NITROGEN 26 mg/dL (7-20); CALCIUM 9.5 mg/dL (8.4-10.2); CARBON DIOXIDE 23 mmol/L (22-30); CHLORIDE 101 mmol/L (98-107); CREATININE RESULT 0.99 mg/dL (0.52-1.25); GLUCOSE 263 mg/dL (75-110); POTASSIUM 4.5 mmol/L (3.6-5.0); SODIUM 139.1 mmol/L (137-145)
[2016-10-19] MEDS: ENOXAPARIN SODIUM INJ 40 MG/0.4 ML DISP.SYRIN SUBCUT SCH (08:26)
[2016-10-19] MEDS: INSULIN LISPRO 100 UNIT/ML 3 ML VIAL SUBCUT PRN ×3 (08:26→22:34)
[2016-10-19] MEDS: LOSARTAN POTASSIUM 50 MG TABLET PO SCH (10:01)
[2016-10-19] MEDS: SITAGLIPTIN PHOSPHATE 50 MG TABLET PO SCH (10:02)
[2016-10-19] MEDS: CETIRIZINE 10 MG TABLET PO SCH (10:02)
[2016-10-19] MEDS: PREDNISONE 20 MG TABLET PO SCH ×2 (10:03→17:50)
[2016-10-19] MEDS: HYDROCHLOROTHIAZIDE 25 MG TABLET PO SCH (10:03)
[2016-10-19] MEDS: LANSOPRAZOLE 15 MG TAB.RAP.DR PO SCH (10:03)
[2016-10-19] MEDS: FAMOTIDINE 20 MG TABLET PO SCH ×2 (10:03→22:31)
[2016-10-19] MEDS: GUAIFENESIN 600 MG TABLET.SA PO SCH ×2 (10:03→22:32)
[2016-10-19] MEDS: SERTRALINE HCL 50 MG TABLET PO SCH (10:04)
[2016-10-19] MEDS: ATENOLOL 50 MG TABLET PO SCH (10:04)
[2016-10-19] MEDS: LEVOFLOXACIN 500 MG/D5W RTU 100 ML IV SCH (10:05)
[2016-10-19] MEDS: AMLODIPINE BESYLATE 10 MG TABLET PO SCH (10:05)
[2016-10-19] MEDS: CEFEPIME 1 GM/D5W RTU 50 ML IV SCH ×2 (10:11→22:31)
[2016-10-19] MEDS: HYDROCODONE BIT/HOMATROPINE 5-1.5 MG TABLET PO PRN ×2 (10:11→22:31)
--- NOTE | 2016-10-19 12:04 | PDOC CONSULTATION ---
Consultation Consult Date: 10/17/16 Attending physician:: CELESTE MELCHOR Consult reason:: Dyspnea History of Present Illness Admission Date/PCP: 10/15/16 21:33 ABBI HERNANDEZ MD History of Present Illness: SRAVAN SKY is a 81 year old female This is a 81-year-old female with the history of the type II diabetes/ hypertension/coronary artery disease status post stent placement /COPD/and heart -valve problems and a history of anemia went to see.she sent to the emergency department where the patient have a CT angiogram was done and was negative for pulmonary embolism but positive for the pneumonia.Patient was complains of non-productive cough and congestions for last several weeks. Patient also see her Dr. LEWIS as office and told her that she has some valve problems and she is not candidate for any procedures. This and also see her Dr. sneed as outpatient for COPD and the lung issues. Her PPD is negative dates unknown she had no history of chronic lung disease as a child or adolescent she admits to exposure to passive smoke as a child as well as an adult. She herself says she has never smoked. 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 Past Medical History Cardiac Medical History: Reports: Hypertension Denies: Coronary Artery Disease, Myocardial Infarction - BAD HEART VALVES, STENTS X5 Pulmonary Medical History: Reports: Chronic Obstructive Pulmonary Disease (COPD) , Pneumonia - HX Denies: Asthma, Bronchitis Neurological Medical History: Denies: Seizures Endocrine Medical History: Reports: Diabetes Mellitus Type 2 GI Medical History: Reports: Gastroesophageal Reflux Disease Musculoskeltal Medical History: Reports: Arthritis Psychiatric Medical History: Denies: Depression Hematology: Reports: Anemia Past Surgical History Past Surgical History: Reports: Cardiac Catheterization, Coronary Stent, Hysterectomy Social History Information Source: Patient, [facility] Records Have you worked as/with:: [employer] Lives with: Family Smoking Status: Never Smoker Passive smoke exposure as: Both Frequency of Alcohol Use: None Hx Recreational Drug Use: No Drugs: None Hx Prescription Drug Abuse: No Do you have pets?: Yes Have you had any respiratory illnesses as a child?: No Have you been exposed to any sick contacts recently?: No Have you had any recent respiratory illnesses?: Yes Have you travelled outside of [place] in the past 12 months?: No Family History Family History: Reviewed & Not Pertinent Parental Family History Reviewed: No Children Family History Reviewed: No Sibling(s) Family History Reviewed.: No Medication/Allergy Home Medications: Amlodipine Besylate [Norvasc 10 mg Tablet] 10 mg PO DAILY 10/16/16 Atenolol [Tenormin 50 mg Tablet] 50 mg PO DAILY 10/16/16 Atorvastatin Calcium [Lipitor 40 mg Tablet] 40 mg PO DAILY 10/16/16 Benzocaine/Menthol [Cepacol Sore Throat Lozenge] 1 each BUCCAL Q2HP PRN Calcium Carbonate [Calcium] 500 mg PO DAILY 10/16/16 Cyanocobalamin (Vitamin B-12) [Vitamin B-12] 1,000 mcg PO DAILY 10/16/16 Ergocalciferol (Vitamin D2) [Drisdol 50,000 unit (1.25MG) Capsule] 50,000 unit PO DAILY 10/16/16 Glimepiride [Amaryl] 2 mg PO [id number] 10/16/16 Multivitamin [Multivitamins] 1 each PO DAILY 10/16/16 Omeprazole 40 mg PO DAILY 10/16/16 Prasugrel Hydrochloride [Effient] 10 mg PO DAILY 10/16/16 Sertraline HCl [Zoloft] 25 mg PO DAILY 10/16/16 Sitagliptin Phosphate [Januvia] 100 mg PO DAILY 10/16/16 Telmisartan/Hydrochlorothiazid [Micardis HCT 80-25 mg Tablet] 1 each PO DAILY Allergies/Adverse Reactions: No Known Allergies Allergy (Verified 10/15/16 15:40) Physical Exam Vital Signs: Temp Pulse Resp BP Pulse Ox 99.0 F 88 18 149/54 H 93 10/17/16 08:05 10/17/16 08:30 10/17/16 08:30 10/17/16 08:05 10/17/16 08:30 Intake & Output 10/16/16 10/17/16 10/18/16 06:59 06:59 06:59 Intake Total 1708 Balance 1708 Weight 95.4 kg General appearance: PRESENT: cooperative, disheveled, obese Head exam: PRESENT: normocephalic Eye exam: PRESENT: conjunctiva pale, EOMI Mouth exam: PRESENT: moist, neck supple, tongue midline Neck exam: ABSENT: carotid bruit, JVD, lymphadenopathy, thyromegaly Respiratory exam: PRESENT: decreased breath sounds, prolonged expiratory phas, rhonchi, symmetrical, unlabored, wheezes Cardiovascular exam: PRESENT: RRR, +S1, +S2 Pulses: PRESENT: normal radial pulses GI/Abdominal exam: PRESENT: normal bowel sounds, soft. ABSENT: distended, guarding, mass, organolmegaly, rebound, tenderness Rectal exam: PRESENT: deferred Gentrourinary exam: PRESENT: indwelling catheter Musculoskeletal exam: PRESENT: normal inspection Neurological exam: PRESENT: alert, awake, CN II-XII grossly intact Psychiatric exam: PRESENT: normal mood Skin exam: PRESENT: dry, warm Results Laboratory Results: 10/17/16 07:13 10/17/16 07:13 10/17/16 10/17/16 07:13 07:13 WBC 10.6 H RBC 3.33 L Hgb 10.1 L Hct 29.2 L MCV 88 MCH 30.4 MCHC 34.7 RDW 14.7 H Plt Count 291 Seg Neutrophils % 70.5 Lymphocytes % 15.3 Monocytes % 10.5 Eosinophils % 3.4 Basophils % 0.3 Absolute Neutrophils 7.4 Absolute Lymphocytes 1.6 Absolute Monocytes 1.1 Absolute Eosinophils 0.4 Absolute Basophils 0.0 Sodium 139.5 Potassium 3.7 Chloride 105 Carbon Dioxide 22 Anion Gap 13 BUN 18 Creatinine 0.87 Est GFR ( Amer) > 60 Est GFR (Non-Af Amer) > 60 Glucose 186 H Calcium 9.1 Total Bilirubin 0.4 AST 27 ALT 30 Alkaline Phosphatase 70 Total Protein 6.4 Albumin 3.4 L 10/15/16 10/15/16 10/16/16 22:57 22:57 05:05 Creatine Kinase 54 248 H CK-MB (CK-2) 0.46 Troponin I 0.027 NT-Pro-B Natriuret Pep 10/16/16 10/16/16 10/16/16 05:05 10:49 10:49 Creatine Kinase 430 H CK-MB (CK-2) 1.70 2.30 Troponin I < 0.012 < 0.012 NT-Pro-B Natriuret Pep 1040 H 10/16/16 10/16/16 17:18 17:18 Creatine Kinase 475 H CK-MB (CK-2) 2.32 Troponin I < 0.012 NT-Pro-B Natriuret Pep Impressions: Chest X-Ray 10/15/16 15:45 IMPRESSION: NO SIGNIFICANT RADIOGRAPHIC FINDING IN THE CHEST. Chest/Abdomen CTA 10/15/16 18:54 IMPRESSION: Increased patchy airspace disease and ground-glass opacities in the right lower lobe. Increased interstitial prominence bilaterally. . NO PULMONARY EMBOLI. Assessment & Plan - Diagnosis (1) COPD with acute exacerbation Is this a current diagnosis for this admission?: YesPlan: Improving still must consider chronic aspiration pneumonia as well as a possible obesity hypoventilation syndrome (2) Morbid obesity Qualifiers: Obesity type: unspecified obesity type Qualified Code(s): E66.01 - Morbid (severe) obesity due to excess calories Is this a current diagnosis for this admission?: YesPlan: Unchanged (3) Respiratory failure Qualifiers: Chronicity: acute Is this a current diagnosis for this admission?: YesPlan: Improving not yet resolved
[2016-10-19] MEDS: FLUCONAZOLE 100 MG TABLET PO SCH (12:10)
--- NOTE | 2016-10-19 17:57 | PDOC PROGRESS REPORT ---
Subjective Progress Note for:: 10/19/16 Subjective:: Patient is doing fair still feeling weak but denied any chest pain no shortness of the breath still have a coughing spell Physical Exam Vital Signs: Temp Pulse Resp BP Pulse Ox 98.1 F 73 18 148/52 H 98 10/19/16 16:00 10/19/16 16:00 10/19/16 16:00 10/19/16 16:00 10/19/16 16:00 Intake & Output 10/18/16 10/19/16 10/20/16 06:59 06:59 06:59 Intake Total 1244 1966 414 Balance 1244 1966 414 Weight 93.2 kg General appearance: PRESENT: no acute distress, well-developed, well-nourished Head exam: PRESENT: atraumatic, normocephalic Eye exam: PRESENT: conjunctiva pink, EOMI, PERRLA. ABSENT: scleral icterus Ear exam: PRESENT: normal external ear exam Mouth exam: PRESENT: moist, tongue midline Neck exam: PRESENT: full ROM. ABSENT: carotid bruit, JVD, lymphadenopathy, thyromegaly Respiratory exam: PRESENT: clear to auscultation maria m Cardiovascular exam: PRESENT: RRR. ABSENT: diastolic murmur, rubs, systolic murmur Pulses: PRESENT: normal dorsalis pedis pul, +2 pedal pulses bilateral Vascular exam: PRESENT: normal capillary refill GI/Abdominal exam: PRESENT: normal bowel sounds, soft. ABSENT: distended, guarding, mass, organolmegaly, rebound, tenderness Rectal exam: PRESENT: deferred Neurological exam: PRESENT: alert, awake, oriented to person, oriented to place , oriented to time, oriented to situation, CN II-XII grossly intact. ABSENT: motor sensory deficit Psychiatric exam: PRESENT: appropriate affect, normal mood. ABSENT: homicidal ideation, suicidal ideation Skin exam: PRESENT: dry, intact, warm. ABSENT: cyanosis, rash Results Laboratory Results: 10/19/16 05:17 10/19/16 05:17 10/19/16 10/19/16 05:17 05:17 WBC 11.6 H RBC 3.54 L Hgb 10.4 L Hct 31.5 L MCV 89 MCH 29.3 MCHC 32.9 RDW 14.1 H Plt Count 353 Seg Neutrophils % 85.4 H Lymphocytes % 8.3 L Monocytes % 5.8 Eosinophils % 0.2 Basophils % 0.3 Absolute Neutrophils 9.9 H Absolute Lymphocytes 1.0 Absolute Monocytes 0.7 Absolute Eosinophils 0.0 Absolute Basophils 0.0 Sodium 139.1 Potassium 4.5 Chloride 101 Carbon Dioxide 23 Anion Gap 15 BUN 26 H Creatinine 0.99 Est GFR ( Amer) > 60 Est GFR (Non-Af Amer) 54 L Glucose 263 H Calcium 9.5 10/15/16 10/15/16 10/16/16 22:57 22:57 05:05 Creatine Kinase 54 248 H CK-MB (CK-2) 0.46 Troponin I 0.027 NT-Pro-B Natriuret Pep 10/16/16 10/16/16 10/16/16 05:05 10:49 10:49 Creatine Kinase 430 H CK-MB (CK-2) 1.70 2.30 Troponin I < 0.012 < 0.012 NT-Pro-B Natriuret Pep 1040 H 10/16/16 10/16/16 17:18 17:18 Creatine Kinase 475 H CK-MB (CK-2) 2.32 Troponin I < 0.012 NT-Pro-B Natriuret Pep Impressions: Chest/Abdomen CTA 10/15/16 18:54 IMPRESSION: Increased patchy airspace disease and ground-glass opacities in the right lower lobe. Increased interstitial prominence bilaterally. . NO PULMONARY EMBOLI. Chest X-Ray 10/17/16 00:00 IMPRESSION: NO ACUTE RADIOGRAPHIC FINDING IN THE CHEST. Assessment & Plan - Diagnosis (1) Respiratory failure Qualifiers: Chronicity: acute Is this a current diagnosis for this admission?: YesPlan: Most likely due to the COPD and underlying pneumonia. We consulted the pulmonary for further evaluations We will also get the ABG (2) COPD with acute exacerbation Is this a current diagnosis for this admission?: YesPlan: Start the patient and the steroid (3) Pneumonia Qualifiers: Pneumonia type: due to unspecified organism Is this a current diagnosis for this admission?: YesPlan: Start the patient on IV cefepime and the Levaquin (4) Coronary artery disease Qualifiers: Coronary Disease-Associated Artery/Lesion type: unspecified vessel or lesion type Is this a current diagnosis for this admission?: YesPlan: We'll get the cardiac enzymes 3 and echocardiograms and will get the record from Dr. Amato's office (5) Benign hypertension Is this a current diagnosis for this admission?: YesPlan: Stable continues the current medications (6) Type II diabetes mellitus Qualifiers: Diabetes mellitus complication status: with unspecified complications Is this a current diagnosis for this admission?: YesPlan: Continues a sliding scale (7) Morbid obesity Qualifiers: Obesity type: unspecified obesity type Qualified Code(s): E66.01 - Morbid (severe) obesity due to excess calories Is this a current diagnosis for this admission?: Yes (8) Anemia Qualifiers: Anemia type: unspecified type Qualified Code(s): D64.9 - Anemia, unspecified Is this a current diagnosis for this admission?: Yes - Time Time Spent with patient: 15-24 minutes Medications reviewed and adjusted accordingly: Yes Anticipated discharge: SNF - Inpatient Certification Medical Necessity: Need Close Monitoring Due to Risk of Patient Decompensation, Need for IV Antibiotics Post Hospital Care: D/C Therapy Aide Documentation - Plan Summary Plan Summary: Continues to p.o. prednisone continues to IV antibiotic I think patient is getting much better hopefully will discharge the patient in this nursing facility very soon
[2016-10-19] MEDS: ATORVASTATIN CALCIUM 40 MG TABLET PO SCH (22:31)
[2016-10-20] MEDS: IPRATROPIUM/ALBUTEROL 0.5-2.5 MG/3 ML AMPUL NEB SCH ×6 (00:13→20:09)
[2016-10-20 06:37] LABS: ANION GAP 12 (5-19); BLOOD UREA NITROGEN 33 mg/dL (7-20); CALCIUM 9.3 mg/dL (8.4-10.2); CARBON DIOXIDE 23 mmol/L (22-30); CHLORIDE 101 mmol/L (98-107); CREATININE RESULT 0.94 mg/dL (0.52-1.25); GLUCOSE 266 mg/dL (75-110); POTASSIUM 5.3 mmol/L (3.6-5.0); SODIUM 136.3 mmol/L (137-145)
[2016-10-20] MEDS: ENOXAPARIN SODIUM INJ 40 MG/0.4 ML DISP.SYRIN SUBCUT SCH (08:20)
[2016-10-20] MEDS: INSULIN LISPRO 100 UNIT/ML 3 ML VIAL SUBCUT PRN ×4 (08:24→22:00)
--- NOTE | 2016-10-20 09:33 | ST Inp Modified Barium Swallow ---
Medical Diagnosis - Medical Diagnoses Medical Diagnosis Description & ICD-10 Code(s): cough - ICD-10 Tx Diagnosis Coding (1) Dysphagia, unspecified ICD-10 Code(s): R13.10 - DYSPHAGIA, UNSPECIFIED ST [place] [facility] [place]: 10[place]20/16 Date of Onset: 10/15/16 - History History Obtained From: Patient - per EMR -: Medical - Per EMR; breathing difficulty, PNA, cough, respiratory failure, COPD, CAD, morbid obesity. Chest xray shows no acute radiographic findings. Chest CT shows increased patchy airspace disease and ground glass opacities in right lower lobe. PMHx: diabetes, COPD, heart valve problems, anemia, PNA, GERD , arthritis, coronary stent. Pt denies coughing or choking with eating or drinking. Denies globus sensation with all consistencies. Medications: Medications Reviewed Allergies: Refer to medical record - Subjective Current Nutritional Means: PO Current PO Diet: Regular Current Symptoms: Coughing - per MD order Pain: 0/5 - Objective Assessment: Upright, Left Lateral - Food Trials Food Trials Used: Thin liquids, Pureed, Regular The Patient: Was Able to Self Feed - Assessment Labial Function: Within Normal Limits Lingual Function: Within Normal Limits Mandibular Function: Within Normal Limits Dentition: Edentulous Velo-Pharyngeal Function: Unremarkable Laryngeal Function: Volitional Cough, Volitional Swallow - Pharyngeal Stage Initiation of Pharyngeal Stage: Normal Decreased Laryngeal Elevation: No Reduced Velo-Pharyngeal Closure: no Reduced Pressure Generation: No Reduced Tongue Base Retraction: No Pre-Swallowing Pooling in Valleculae: None Pre-Swallowing Pooling in Pyriforms: None Reduced Thyro-Hyiod Approximation: No Reduced Epiglottic Excursion: No Reduced Pharyngeal Peristalsis: No Post Swallow Residuals in Valleculae: Mild - trace on puree-cleared with pt initiated second swallow. Post Swallow Residuals in Pyriforms: None - Impression/Summary Laryngeal Penetration: No Tracheal Aspiration: no Patient Presents With: Normal swallow at eval - safe and effective swallow observed Risk of Aspiration: Minimal - Recommendations NPO: no Solid Diet Recommendations: Regular Liquid Diet Recommendations: Thin Dysphagia Therapy with CHIEF INFORMATION OFFICER: No Recommended Techniques: Fully Upright During Meal, Small Bites and Sips Supervision: Independent Other Recommendations: 1) DIET: recommend continued regular and thin. 2) Small bites and sips. 3) Fully upright during meals. SUMMARY: Safe and effective swallow observed. No penetration or aspiration seen during study. Trace residuals observed on puree which were observed to clear with pt initiated second swallow. No residuals of thin or regular. ST to to sign off at this time. - Time Total Time: 15 Total Timed Minutes: 0 ST F.L. Impairment Category - Rationale Based On Rationale Based On: Clin Find., Obj Measures - Swallowing Current G8996: CH 0% Impaired Goal G8997: CH 0% Impaired Discharge G8998: CH 0% Impaired
[2016-10-20] MEDS ORDERED: LEVOFLOXACIN 500 MG TABLET PO SCH (10:00)
[2016-10-20] MEDS ORDERED: PREDNISONE 20 MG TABLET PO SCH (10:00)
[2016-10-20] MEDS: AMLODIPINE BESYLATE 10 MG TABLET PO SCH (10:16)
[2016-10-20] MEDS: CETIRIZINE 10 MG TABLET PO SCH (10:17)
[2016-10-20] MEDS: GUAIFENESIN 600 MG TABLET.SA PO SCH ×2 (10:17→21:54)
[2016-10-20] MEDS: SERTRALINE HCL 50 MG TABLET PO SCH (10:18)
[2016-10-20] MEDS: LOSARTAN POTASSIUM 50 MG TABLET PO SCH (10:18)
[2016-10-20] MEDS: ATENOLOL 50 MG TABLET PO SCH (10:18)
[2016-10-20] MEDS: FAMOTIDINE 20 MG TABLET PO SCH ×2 (10:19→21:54)
[2016-10-20] MEDS: LANSOPRAZOLE 15 MG TAB.RAP.DR PO SCH (10:19)
[2016-10-20] MEDS: HYDROCHLOROTHIAZIDE 25 MG TABLET PO SCH (10:19)
[2016-10-20] MEDS: SITAGLIPTIN PHOSPHATE 50 MG TABLET PO SCH (10:19)
[2016-10-20] MEDS: CEFEPIME 1 GM/D5W RTU 50 ML IV SCH ×2 (10:23→21:54)
[2016-10-20] MEDS: FLUCONAZOLE 100 MG TABLET PO SCH (11:12)
--- NOTE | 2016-10-20 13:43 | PDOC PROGRESS REPORT ---
Subjective Progress Note for:: 10/20/16 Subjective:: Patient is feeling better patient seen by Dr. Vila and ordered a modified barium swallow. Patient's denied any chest pain without any shortness of the breath and wheezing is much better after start the prednisone. Physical Exam Vital Signs: Temp Pulse Resp BP Pulse Ox 98.1 F 96 18 145/54 H 84 L 10/20/16 10:49 10/20/16 12:42 10/20/16 12:42 10/20/16 10:49 10/20/16 12:42 Pulse Oximeter Nocturnal Start: 10/19/16 12: 04 Freq: RTQ4 Status: Complete Document 10/20/16 08:18 [facility] [place] (Rec: 10/20/16 08:44 [facility] [place] [email or web address]) Nocturnal Pulse Oximetry Equipment Usage Equipment Discontinued Oxygen Delivery Method (includes room Room Air air) O2 Sat by Pulse Oximetry (92-100) 80 Continuous SpO2 Machine # N 11 Other found pt off o2, returned to [facility] after rx Intake & Output 10/19/16 10/20/16 10/21/16 06:59 06:59 06:59 Intake Total 1965 1114 400 Balance 1965 1114 400 Weight 93.9 kg General appearance: PRESENT: no acute distress, well-developed, well-nourished Head exam: PRESENT: atraumatic, normocephalic Eye exam: PRESENT: conjunctiva pink, EOMI, PERRLA. ABSENT: scleral icterus Ear exam: PRESENT: normal external ear exam Mouth exam: PRESENT: moist, tongue midline Neck exam: PRESENT: full ROM. ABSENT: carotid bruit, JVD, lymphadenopathy, thyromegaly Respiratory exam: PRESENT: clear to auscultation maria m Cardiovascular exam: PRESENT: RRR. ABSENT: diastolic murmur, rubs, systolic murmur Pulses: PRESENT: normal dorsalis pedis pul, +2 pedal pulses bilateral Vascular exam: PRESENT: normal capillary refill GI/Abdominal exam: PRESENT: normal bowel sounds, soft. ABSENT: distended, guarding, mass, organolmegaly, rebound, tenderness Rectal exam: PRESENT: deferred Neurological exam: PRESENT: alert, awake, oriented to person, oriented to place , oriented to time, oriented to situation, CN II-XII grossly intact. ABSENT: motor sensory deficit Psychiatric exam: PRESENT: appropriate affect, normal mood. ABSENT: homicidal ideation, suicidal ideation Skin exam: PRESENT: dry, intact, warm. ABSENT: cyanosis, rash Results Laboratory Results: 10/19/16 05:17 10/20/16 06:09 10/20/16 10/20/16 04:15 06:09 Sodium Cancelled 136.3 L Potassium Cancelled 5.3 H Chloride Cancelled 101 Carbon Dioxide Cancelled 23 Anion Gap Cancelled 12 BUN Cancelled 33 H Creatinine Cancelled 0.94 Est GFR ( Amer) Cancelled > 60 Est GFR (Non-Af Amer) Cancelled 57 L Glucose Cancelled 266 H Calcium Cancelled 9.3 10/15/16 10/15/16 10/16/16 22:57 22:57 05:05 Creatine Kinase 54 248 H CK-MB (CK-2) 0.46 Troponin I 0.027 NT-Pro-B Natriuret Pep 10/16/16 10/16/16 10/16/16 05:05 10:49 10:49 Creatine Kinase 430 H CK-MB (CK-2) 1.70 2.30 Troponin I < 0.012 < 0.012 NT-Pro-B Natriuret Pep 1040 H 10/16/16 10/16/16 17:18 17:18 Creatine Kinase 475 H CK-MB (CK-2) 2.32 Troponin I < 0.012 NT-Pro-B Natriuret Pep Impressions: Chest/Abdomen CTA 10/15/16 18:54 IMPRESSION: Increased patchy airspace disease and ground-glass opacities in the right lower lobe. Increased interstitial prominence bilaterally. . NO PULMONARY EMBOLI. Chest X-Ray 10/20/16 00:00 IMPRESSION: No acute findings Assessment & Plan - Diagnosis (1) Respiratory failure Qualifiers: Chronicity: acute Is this a current diagnosis for this admission?: YesPlan: Most likely due to the COPD and underlying pneumonia. We consulted the pulmonary for further evaluations We will also get the ABG (2) COPD with acute exacerbation Is this a current diagnosis for this admission?: YesPlan: Start the patient and the steroid (3) Pneumonia Qualifiers: Pneumonia type: due to unspecified organism Is this a current diagnosis for this admission?: YesPlan: Start the patient on IV cefepime and the Levaquin (4) Coronary artery disease Qualifiers: Coronary Disease-Associated Artery/Lesion type: unspecified vessel or lesion type Is this a current diagnosis for this admission?: YesPlan: We'll get the cardiac enzymes 3 and echocardiograms and will get the record from Dr. Amato's office (5) Benign hypertension Is this a current diagnosis for this admission?: YesPlan: Stable continues the current medications (6) Type II diabetes mellitus Qualifiers: Diabetes mellitus complication status: with unspecified complications Is this a current diagnosis for this admission?: YesPlan: Continues a sliding scale (7) Morbid obesity Qualifiers: Obesity type: unspecified obesity type Qualified Code(s): E66.01 - Morbid (severe) obesity due to excess calories Is this a current diagnosis for this admission?: Yes (8) Anemia Qualifiers: Anemia type: unspecified type Qualified Code(s): D64.9 - Anemia, unspecified Is this a current diagnosis for this admission?: Yes - Time Time Spent with patient: 15-24 minutes Medications reviewed and adjusted accordingly: Yes Anticipated discharge: SNF - Inpatient Certification Medical Necessity: Need Close Monitoring Due to Risk of Patient Decompensation, Need for IV Antibiotics Post Hospital 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
[2016-10-20] MEDS: ATORVASTATIN CALCIUM 40 MG TABLET PO SCH (21:54)
[2016-10-21] MEDS: IPRATROPIUM/ALBUTEROL 0.5-2.5 MG/3 ML AMPUL NEB SCH ×6 (00:35→20:14)
[2016-10-21] MEDS: HYDROCODONE BIT/HOMATROPINE 5-1.5 MG TABLET PO PRN (04:24)
[2016-10-21 06:50] LABS: ABSOLUTE BASOPHILS # (AUTO) 0.1 10^3/uL (0.0-0.2); ABSOLUTE EOSINOPHILS # (AUTO) 0.2 10^3/uL (0.0-0.6); ABSOLUTE LYMPHOCYTES (AUTO) 2.3 10^3/uL (0.5-4.7); ABSOLUTE MONOCYTES (AUTO) 1.4 10^3/uL (0.1-1.4); ABSOLUTE NEUT (AUTO) 11.9 10^3/uL (1.7-8.2); BASOPHILS % (AUTO) 0.7 % (0-2); EOSINOPHILS % (AUTO) 1.2 % (0-6); HEMATOCRIT 29.1 % (36.0-47.0); HEMOGLOBIN 9.8 g/dL (12.0-15.5); HGB HCT DIFFERENCE 0.3; LYMPHOCYTES % (AUTO) 14.7 % (13-45); MEAN CORPUSCULAR HEMOGLOBIN 29.5 pg (27.0-33.4); MEAN CORPUSCULAR HGB CONC 33.5 g/dL (32.0-36.0); MEAN CORPUSCULAR VOLUME 88 fl (80-97); MONOCYTES % (AUTO) 8.8 % (3-13); RED BLOOD COUNT 3.31 10^6/uL (3.72-5.28); RED CELL DISTRIBUTION WIDTH 14.5 % (11.5-14.0); SEGMENTED NEUTROPHILS % (AUTO) 74.6 % (42-78); WHITE BLOOD COUNT 15.9 10^3/uL (4.0-10.5)
[2016-10-21 06:56] LABS: ANION GAP 13 (5-19); BLOOD UREA NITROGEN 36 mg/dL (7-20); CALCIUM 9.5 mg/dL (8.4-10.2); CARBON DIOXIDE 25 mmol/L (22-30); CHLORIDE 104 mmol/L (98-107); CREATININE RESULT 0.88 mg/dL (0.52-1.25); GLUCOSE 193 mg/dL (75-110); POTASSIUM 4.4 mmol/L (3.6-5.0); SODIUM 141.7 mmol/L (137-145)
[2016-10-21] MEDS: ENOXAPARIN SODIUM INJ 40 MG/0.4 ML DISP.SYRIN SUBCUT SCH (08:03)
[2016-10-21] MEDS: INSULIN LISPRO 100 UNIT/ML 3 ML VIAL SUBCUT PRN ×4 (08:10→21:59)
--- NOTE | 2016-10-21 09:14 | PDOC PROGRESS REPORT ---
Subjective Progress Note for:: 10/21/16 Subjective:: pt is doing fair pt cxr is stable pt still need o2 pt use c pap at night for sleep apnea at home pt deneid any chest pain no sob Physical Exam Vital Signs: Temp Pulse Resp BP Pulse Ox 98.2 F 61 16 150/56 H 95 10/21/16 07:18 10/21/16 08:00 10/21/16 08:00 10/21/16 07:18 10/21/16 08:00 Pulse Oximeter Nocturnal Start: 10/19/16 12: 04 Freq: RTQ4 Status: Complete Document 10/20/16 08:18 [facility] [place] (Rec: 10/20/16 08:44 [facility] [place] [email or web address]) Nocturnal Pulse Oximetry Equipment Usage Equipment Discontinued Oxygen Delivery Method (includes room Room Air air) O2 Sat by Pulse Oximetry (92-100) 80 Continuous SpO2 Machine # N 11 Other found pt off o2, returned to [facility] after rx Intake & Output 10/20/16 10/21/16 10/22/16 06:59 06:59 06:59 Intake Total 1114 1874 Balance 1114 1874 Weight 93.9 kg 93.5 kg General appearance: PRESENT: no acute distress, well-developed, well-nourished Head exam: PRESENT: atraumatic, normocephalic Eye exam: PRESENT: conjunctiva pink, EOMI, PERRLA. ABSENT: scleral icterus Ear exam: PRESENT: normal external ear exam Mouth exam: PRESENT: moist, tongue midline Neck exam: PRESENT: full ROM. ABSENT: carotid bruit, JVD, lymphadenopathy, thyromegaly Respiratory exam: PRESENT: clear to auscultation maria m Cardiovascular exam: PRESENT: RRR. ABSENT: diastolic murmur, rubs, systolic murmur Pulses: PRESENT: normal dorsalis pedis pul, +2 pedal pulses bilateral Vascular exam: PRESENT: normal capillary refill GI/Abdominal exam: PRESENT: normal bowel sounds, soft. ABSENT: distended, guarding, mass, organolmegaly, rebound, tenderness Rectal exam: PRESENT: deferred Neurological exam: PRESENT: alert, awake, oriented to person, oriented to place , oriented to time, oriented to situation, CN II-XII grossly intact. ABSENT: motor sensory deficit Psychiatric exam: PRESENT: appropriate affect, normal mood. ABSENT: homicidal ideation, suicidal ideation Skin exam: PRESENT: dry, intact, warm. ABSENT: cyanosis, rash Results Laboratory Results: 10/21/16 05:52 10/21/16 05:52 10/21/16 10/21/16 05:52 05:52 WBC 15.9 H RBC 3.31 L Hgb 9.8 L Hct 29.1 L MCV 88 MCH 29.5 MCHC 33.5 RDW 14.5 H Plt Count 313 Seg Neutrophils % 74.6 Lymphocytes % 14.7 Monocytes % 8.8 Eosinophils % 1.2 Basophils % 0.7 Absolute Neutrophils 11.9 H Absolute Lymphocytes 2.3 Absolute Monocytes 1.4 Absolute Eosinophils 0.2 Absolute Basophils 0.1 Sodium 141.7 Potassium 4.4 Chloride 104 Carbon Dioxide 25 Anion Gap 13 BUN 36 H Creatinine 0.88 Est GFR ( Amer) > 60 Est GFR (Non-Af Amer) > 60 Glucose 193 H Calcium 9.5 10/15/16 10/15/16 10/16/16 22:57 22:57 05:05 Creatine Kinase 54 248 H CK-MB (CK-2) 0.46 Troponin I 0.027 NT-Pro-B Natriuret Pep 10/16/16 10/16/16 10/16/16 05:05 10:49 10:49 Creatine Kinase 430 H CK-MB (CK-2) 1.70 2.30 Troponin I < 0.012 < 0.012 NT-Pro-B Natriuret Pep 1040 H 10/16/16 10/16/16 17:18 17:18 Creatine Kinase 475 H CK-MB (CK-2) 2.32 Troponin I < 0.012 NT-Pro-B Natriuret Pep Impressions: Chest/Abdomen CTA 10/15/16 18:54 IMPRESSION: Increased patchy airspace disease and ground-glass opacities in the right lower lobe. Increased interstitial prominence bilaterally. . NO PULMONARY EMBOLI. Chest X-Ray 10/20/16 00:00 IMPRESSION: No acute findings Modified Barium Swallow 10/20/16 00:00 IMPRESSION: NO EVIDENCE OF PENETRATION OR ASPIRATION. PLEASE SEE SPEECH PATHOLOGIST REPORT FOR OTHER FINDINGS AND RECOMMENDATIONS. Assessment & Plan - Diagnosis (1) Respiratory failure Qualifiers: Chronicity: acute Is this a current diagnosis for this admission?: YesPlan: Most likely due to the COPD and underlying pneumonia. We consulted the pulmonary for further evaluations We will also get the ABG (2) COPD with acute exacerbation Is this a current diagnosis for this admission?: YesPlan: Start the patient and the steroid (3) Pneumonia Qualifiers: Pneumonia type: due to unspecified organism Is this a current diagnosis for this admission?: YesPlan: start po antiboitcs and stop iv (4) Coronary artery disease Qualifiers: Coronary Disease-Associated Artery/Lesion type: unspecified vessel or lesion type Is this a current diagnosis for this admission?: YesPlan: We'll get the cardiac enzymes 3 and echocardiograms and will get the record from Dr. Amato's office (5) Benign hypertension Is this a current diagnosis for this admission?: YesPlan: Stable continues the current medications (6) Type II diabetes mellitus Qualifiers: Diabetes mellitus complication status: with unspecified complications Is this a current diagnosis for this admission?: YesPlan: Continues a sliding scale (7) Morbid obesity Qualifiers: Obesity type: unspecified obesity type Qualified Code(s): E66.01 - Morbid (severe) obesity due to excess calories Is this a current diagnosis for this admission?: YesPlan: We discussed the diet plan (8) Anemia Qualifiers: Anemia type: unspecified type Qualified Code(s): D64.9 - Anemia, unspecified Is this a current diagnosis for this admission?: Yes (9) Sleep apnea Qualifiers: Sleep apnea type: unspecified type Qualified Code(s): G47.30 - Sleep apnea, unspecified Is this a current diagnosis for this admission?: YesPlan: use c pap from pt home - Time Time Spent with patient: 15-24 minutes Medications reviewed and adjusted accordingly: Yes Anticipated discharge: SNF Within: within 24 hours - Inpatient Certification Medical Necessity: Need Close Monitoring Due to Risk of Patient Decompensation Post Hospital Care: D/C 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
[2016-10-21] MEDS: AMLODIPINE BESYLATE 10 MG TABLET PO SCH (10:10)
[2016-10-21] MEDS: FAMOTIDINE 20 MG TABLET PO SCH ×2 (10:11→21:59)
[2016-10-21] MEDS: ATENOLOL 50 MG TABLET PO SCH (10:11)
[2016-10-21] MEDS: SERTRALINE HCL 50 MG TABLET PO SCH (10:11)
[2016-10-21] MEDS: PREDNISONE 20 MG TABLET PO SCH (10:12)
[2016-10-21] MEDS: SULFAMETHOXAZOLE/TRIMETHOPRIM 800-160 MG TABLET PO SCH ×2 (10:12→17:18)
[2016-10-21] MEDS: CETIRIZINE 10 MG TABLET PO SCH (10:12)
[2016-10-21] MEDS: LANSOPRAZOLE 15 MG TAB.RAP.DR PO SCH (10:12)
[2016-10-21] MEDS: SITAGLIPTIN PHOSPHATE 50 MG TABLET PO SCH (10:13)
[2016-10-21] MEDS: HYDROCHLOROTHIAZIDE 25 MG TABLET PO SCH (10:13)
[2016-10-21] MEDS: LOSARTAN POTASSIUM 50 MG TABLET PO SCH (10:13)
[2016-10-21] MEDS: GUAIFENESIN 600 MG TABLET.SA PO SCH ×2 (10:13→21:59)
[2016-10-21] MEDS: FLUCONAZOLE 100 MG TABLET PO SCH (11:15)
[2016-10-21] MEDS: ACETAMINOPHEN 325 MG TABLET PO PRN (18:14)
[2016-10-21] MEDS: ATORVASTATIN CALCIUM 40 MG TABLET PO SCH (21:58)
[2016-10-22] MEDS: IPRATROPIUM/ALBUTEROL 0.5-2.5 MG/3 ML AMPUL NEB SCH ×4 (00:26→12:33)
[2016-10-22 04:31] LABS: ABSOLUTE BASOPHILS # (AUTO) 0.1 10^3/uL (0.0-0.2); ABSOLUTE EOSINOPHILS # (AUTO) 0.4 10^3/uL (0.0-0.6); ABSOLUTE LYMPHOCYTES (AUTO) 2.7 10^3/uL (0.5-4.7); ABSOLUTE MONOCYTES (AUTO) 1.5 10^3/uL (0.1-1.4); ABSOLUTE NEUT (AUTO) 10.4 10^3/uL (1.7-8.2); BASOPHILS % (AUTO) 0.7 % (0-2); EOSINOPHILS % (AUTO) 2.6 % (0-6); HEMATOCRIT 28.9 % (36.0-47.0); HEMOGLOBIN 9.6 g/dL (12.0-15.5); HGB HCT DIFFERENCE -0.1; LYMPHOCYTES % (AUTO) 17.9 % (13-45); MEAN CORPUSCULAR HEMOGLOBIN 29.2 pg (27.0-33.4); MEAN CORPUSCULAR HGB CONC 33.2 g/dL (32.0-36.0); MEAN CORPUSCULAR VOLUME 88 fl (80-97); MONOCYTES % (AUTO) 9.8 % (3-13); RED BLOOD COUNT 3.28 10^6/uL (3.72-5.28); RED CELL DISTRIBUTION WIDTH 14.8 % (11.5-14.0)
--- NOTE | 2016-10-22 08:08 | PDOC TRANSFER SUMMARY ---
General - Admit/Disc Date/PCP Admission Date/Primary Care Provider: 10/15/16 21:33 ABBI HERNANDEZ MD Discharge Date: 10/22/16 - Discharge Diagnosis (1) Respiratory failure Is this a current diagnosis for this admission?: YesSummary: All resolving (2) COPD with acute exacerbation Is this a current diagnosis for this admission?: YesSummary: All resolving (3) Pneumonia Is this a current diagnosis for this admission?: YesSummary: Continues the by mouth Bactrim for 7 days (4) Coronary artery disease Is this a current diagnosis for this admission?: YesSummary: Echocardiogram was done and everything is stable (5) Benign hypertension Is this a current diagnosis for this admission?: YesSummary: Continues the current medications (6) Type II diabetes mellitus Is this a current diagnosis for this admission?: YesSummary: Sliding scale with [facility] protocol (7) Morbid obesity Is this a current diagnosis for this admission?: YesSummary: C-peptide machine at night (8) Anemia Is this a current diagnosis for this admission?: YesSummary: Recently follow with Dr. Vila (9) Sleep apnea Is this a current diagnosis for this admission?: YesSummary: On the C-pap night - Additional Information Discharge Diet: Diabetic Home Medications: Amlodipine Besylate [Norvasc 10 mg Tablet] 10 mg PO DAILY 10/16/16 Atenolol [Tenormin 50 mg Tablet] 50 mg PO DAILY 10/16/16 Atorvastatin Calcium [Lipitor 40 mg Tablet] 40 mg PO DAILY 10/16/16 Benzocaine/Menthol [Cepacol Sore Throat Lozenge] 1 each BUCCAL Q2HP PRN Calcium Carbonate [Calcium] 500 mg PO DAILY 10/16/16 Cyanocobalamin (Vitamin B-12) [Vitamin B-12] 1,000 mcg PO DAILY 10/16/16 Ergocalciferol (Vitamin D2) [Drisdol 50,000 unit (1.25MG) Capsule] 50,000 unit PO DAILY 10/16/16 Glimepiride [Amaryl] 2 mg PO [id number] 10/16/16 Multivitamin [Multivitamins] 1 each PO DAILY 10/16/16 Omeprazole 40 mg PO DAILY 10/16/16 Prasugrel Hydrochloride [Effient] 10 mg PO DAILY 10/16/16 Sertraline HCl [Zoloft] 25 mg PO DAILY 10/16/16 Sitagliptin Phosphate [Januvia] 100 mg PO DAILY 10/16/16 Telmisartan/Hydrochlorothiazid [Micardis HCT 80-25 mg Tablet] 1 each PO DAILY Guaifenesin [Mucinex Sr 600 mg Tablet.sa] 600 mg PO Q12 #0 tablet.sa 10/22/16 Prednisone [Deltasone 20 mg Tablet] 10 mg PO DAILY #5 tablet 10/22/16 Sulfamethoxazole/Trimethoprim [Septra-Ds 800-160 mg Tablet] 1 tab PO BID #14 tablet 10/22/16 History of Present Illness Admission Date/PCP: 10/15/16 21:33 ABBI HERNANDEZ MD History of Present Illness: SRAVAN SKY is a 81 year old female This is a 81-year-old female with the history of the type II diabetes/ hypertension/coronary artery disease status post stent placement /COPD/and heart -valve problems and a history of anemia went to see.she sent to the emergency department where the patient have a CT angiogram was done and was negative for pulmonary embolism but positive for the pneumonia.Patient was complains of non-productive cough and congestions for last several weeks. Patient also see her Dr. LEWIS as office and told her that she has some valve problems and she is not candidate for any procedures. This and also see her Dr. sneed as outpatient for COPD and the lung issues. Her PPD is negative dates unknown she had no history of chronic lung disease as a child or adolescent she admits to exposure to passive smoke as a child as well as an adult. She herself says she has never smoked. 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 Hospital Course Hospital Course: This is a 81-year-old female is a new patient's to me from Dr. Rodriguez office came to the emergency department with the complaint of shortness of the breath and patient's diagnosed with a pneumonia and COPD and patient was admitting in the [facility]. Patient was given IV antibiotic and nebulizer treatments and Dr. Vila was consulted. Patient also underwent for the CT chest and echocardiogram and CT chest swos pneumonia and a cardiogram is stable. Patient's otherwise remains stable patient was ordered unappealing antibiotic and the patient's white count is slightly elevated most likely coming from the steroid patient's denied any fever no chest pain and no shortness of the breath and patient's move around in the hallway and patient's by mouth intake is good. At this point patient's discharge to the [place] [facility] and further close monitor over there. Patient's needs to use a C-peptide machine. Patient's follow with the CBC and Chem-7 in 1 week and follow the chest x-ray in one week and patient's need of oxygen and keep O2 sat between 90-94 and the patient's follow with Dr. Vila in the one week Physical Exam Vital Signs: Temp Pulse Resp BP Pulse Ox 97.3 F 55 L 20 144/50 H 94 10/22/16 04:30 10/22/16 07:00 10/22/16 04:30 10/22/16 04:30 10/22/16 04:30 Pulse Oximeter Nocturnal Start: 10/19/16 12: 04 Freq: RTQ4 Status: Complete Document 10/20/16 08:18 [facility] [place]Rec: 10/20/16 08:44 [facility] [email or web address] Nocturnal Pulse Oximetry Equipment Usage Equipment Discontinued Oxygen Delivery Method (includes room Room Air air) O2 Sat by Pulse Oximetry (92-100) 80 Continuous SpO2 Machine # N 11 Other found pt off o2, [facility] Intake & Output 10/21/16 10/22/16 10/23/16 06:59 06:59 06:59 Intake Total 1874 1642 Balance 1874 1642 Weight 93.5 kg 93.7 kg General appearance: PRESENT: no acute distress, well-developed, well-nourished Head exam: PRESENT: atraumatic, normocephalic Eye exam: PRESENT: conjunctiva pink, EOMI, PERRLA. ABSENT: scleral icterus Ear exam: PRESENT: normal external ear exam Mouth exam: PRESENT: moist, tongue midline Neck exam: ABSENT: carotid bruit, JVD, lymphadenopathy, thyromegaly Respiratory exam: PRESENT: clear to auscultation maria m. ABSENT: rales, rhonchi, wheezes Cardiovascular exam: PRESENT: RRR. ABSENT: diastolic murmur, rubs, systolic murmur Pulses: PRESENT: normal dorsalis pedis pul Vascular exam: PRESENT: normal capillary refill GI/Abdominal exam: PRESENT: normal bowel sounds, soft. ABSENT: distended, guarding, mass, organolmegaly, rebound, tenderness Rectal exam: PRESENT: deferred Extremities exam: PRESENT: full ROM. ABSENT: calf tenderness, clubbing, pedal edema Neurological exam: PRESENT: alert, awake, oriented to person, oriented to place , oriented to time, oriented to situation, CN II-XII grossly intact. ABSENT: motor sensory deficit Psychiatric exam: PRESENT: appropriate affect, normal mood. ABSENT: homicidal ideation, suicidal ideation Skin exam: PRESENT: dry, intact, warm. ABSENT: cyanosis, rash Results Laboratory Results: 10/22/16 03:50 10/21/16 05:52 10/22/16 03:50 WBC 15.0 H RBC 3.28 L Hgb 9.6 L Hct 28.9 L MCV 88 MCH 29.2 MCHC 33.2 RDW 14.8 H Plt Count 360 Seg Neutrophils % 69.0 Lymphocytes % 17.9 Monocytes % 9.8 Eosinophils % 2.6 Basophils % 0.7 Absolute Neutrophils 10.4 H Absolute Lymphocytes 2.7 Absolute Monocytes 1.5 H Absolute Eosinophils 0.4 Absolute Basophils 0.1 10/15/16 10/15/16 10/16/16 22:57 22:57 05:05 Creatine Kinase 54 248 H CK-MB (CK-2) 0.46 Troponin I 0.027 NT-Pro-B Natriuret Pep 10/16/16 10/16/16 10/16/16 05:05 10:49 10:49 Creatine Kinase 430 H CK-MB (CK-2) 1.70 2.30 Troponin I < 0.012 < 0.012 NT-Pro-B Natriuret Pep 1040 H 10/16/16 10/16/16 17:18 17:18 Creatine Kinase 475 H CK-MB (CK-2) 2.32 Troponin I < 0.012 NT-Pro-B Natriuret Pep Impressions: Chest/Abdomen CTA 10/15/16 18:54 IMPRESSION: Increased patchy airspace disease and ground-glass opacities in the right lower lobe. Increased interstitial prominence bilaterally. . NO PULMONARY EMBOLI. Chest X-Ray 10/20/16 00:00 IMPRESSION: No acute findings Modified Barium Swallow 10/20/16 00:00 IMPRESSION: NO EVIDENCE OF PENETRATION OR ASPIRATION. PLEASE SEE SPEECH PATHOLOGIST REPORT FOR OTHER FINDINGS AND RECOMMENDATIONS. Transfer Plan - Disposition Transfer Plan: Patient to check the CBC and Chem-7 in 3 days and the chest x-ray in one week Follow with the Dr. Vila in one week - Time Spent with Patient Time spent with patient: Greater than 30 Minutes Plan Time Spent: Greater than 30 Minutes - Discussed with the patient about the or the test results and the plan and the patient's discharge to the nursing homes and continues close monitorPlease check the blood sugar twice a day and ordered a sliding scale with [facility] portable
[2016-10-22] MEDS: ACETAMINOPHEN 325 MG TABLET PO PRN (09:53)
[2016-10-22] MEDS: GUAIFENESIN 600 MG TABLET.SA PO SCH (09:54)
[2016-10-22] MEDS: CETIRIZINE 10 MG TABLET PO SCH (09:54)
[2016-10-22] MEDS: SULFAMETHOXAZOLE/TRIMETHOPRIM 800-160 MG TABLET PO SCH (09:55)
[2016-10-22] MEDS: SERTRALINE HCL 50 MG TABLET PO SCH (09:55)
[2016-10-22] MEDS: PREDNISONE 20 MG TABLET PO SCH (09:55)
[2016-10-22] MEDS: ATENOLOL 50 MG TABLET PO SCH (09:55)
[2016-10-22] MEDS: HYDROCHLOROTHIAZIDE 25 MG TABLET PO SCH (09:56)
[2016-10-22] MEDS: FAMOTIDINE 20 MG TABLET PO SCH (09:56)
[2016-10-22] MEDS: LOSARTAN POTASSIUM 50 MG TABLET PO SCH (09:56)
[2016-10-22] MEDS: SITAGLIPTIN PHOSPHATE 50 MG TABLET PO SCH (09:56)
[2016-10-22] MEDS: LANSOPRAZOLE 15 MG TAB.RAP.DR PO SCH (09:56)
[2016-10-22] MEDS: AMLODIPINE BESYLATE 10 MG TABLET PO SCH (09:57)
[2016-10-22] MEDS: ENOXAPARIN SODIUM INJ 40 MG/0.4 ML DISP.SYRIN SUBCUT SCH (09:57)
[2016-10-22] MEDS: FLUCONAZOLE 100 MG TABLET PO SCH (11:53)
[2016-10-22 12:04] VITALS: BP 141/67
== END 2016-10-22 15:52 | DRG 193 ==
LOC: ER 15:33 → EH 21:33 → 3S 10-16 12:25
PROVIDERS: ADMIT Family Medicine; ATTEND Family Medicine
PROC: 3E0F73Z Introduction of Anti-inflammatory into Respiratory Tract, Via Natural or Artificial Opening (ICD-10-PCS; principal; 2016-10-15)
DX: J18.9 Pneumonia, unspecified organism (principal); J96.01 Acute respiratory failure with hypoxia; J44.0 Chronic obstructive pulmonary disease with (acute) lower respiratory infection; J44.1 Chronic obstructive pulmonary disease with (acute) exacerbation; I25.10 Atherosclerotic heart disease of native coronary artery without angina pectoris; I10 Essential (primary) hypertension; Z95.5 Presence of coronary angioplasty implant and graft; G47.33 Obstructive sleep apnea (adult) (pediatric); E11.9 Type 2 diabetes mellitus without complications; D50.9 Iron deficiency anemia, unspecified; M19.90 Unspecified osteoarthritis, unspecified site; Z90.710 Acquired absence of both cervix and uterus; K21.9 Gastro-esophageal reflux disease without esophagitis; Z79.4 Long term (current) use of insulin
CPT/HCPCS: 36415; 36600; 71020; 71275; 74230; 80048; 80053; 81001; 82550; 82553; 82803; 82962; 83880; 84484; 85025; 87040; 87070; 87205; 87804; 93005; 93010; 93306; 94640; 94660; 94762; 99285; G8978-GP; G8979-GP; G8996-GN; G8997-GN; G8998-GN; J0456; J0692; J0696; J1650; J1815; J1956; J3490; J7512; J7620

== ENCOUNTER 2016-11-05 12:37 | Emergency (ER) | payer MEDICARE, OTHER, MEDICAID ==
--- NOTE | 2016-11-05 13:08 | ER Document Report ---
ED Medical Screen (RME) - General Stated Complaint: DIFFICULTY BREATHING Time seen by provider: 13:04 Mode of Arrival: Medic - Friendly Information source: Patient Notes: 81-year-old female presents to ED for shortness of breath. She was sent over by her doctor Cadence, the ux ui designer. She has a history of COPD she recently had pneumonia and she now resides at [place]. She had a doctor's appointment today and he sent her straight to the emergency room. Has a history of CHF anemia and PF as per Dr. Jones have greeted and performed a rapid initial assessment of this patient. A comprehensive ED assessment and evaluation of the patient, analysis of test results and completion of medical decision making process will be conducted by an additional ED providers. TRAVEL OUTSIDE OF THE [place] IN LAST 30 DAYS: No - Related Data Allergies/Adverse Reactions: No Known Allergies Allergy (Verified 10/15/16 15:40) Past Medical History - Past Medical History Cardiac Medical History: Reports: Hx Hypertension Denies: Hx Coronary Artery Disease, Hx Heart Attack - BAD HEART VALVES, STENTS X5 Pulmonary Medical History: Reports: Hx COPD, Hx Pneumonia - HX Denies: Hx Asthma, Hx Bronchitis Neurological Medical History: Denies: Hx Cerebrovascular Accident, Hx Seizures Endocrine Medical History: Reports: Hx Diabetes Mellitus Type 2 Renal/ Medical History: Denies: Hx Peritoneal Dialysis GI Medical History: Reports: Hx Gastroesophageal Reflux Disease Musculoskeltal Medical History: Reports Hx Arthritis Psychiatric Medical History: Denies: Hx Depression Past Surgical History: Reports: Hx Cardiac Catheterization, Hx Coronary Stent, Hx Hysterectomy - Immunizations Hx Diphtheria, Pertussis, Tetanus Vaccination: Yes Physical Exam - Vital signs Vitals: Temp Pulse Resp BP Pulse Ox 97.9 F 56 L 26 H 143/51 H 95 11/05/16 12:53 11/05/16 12:53 11/05/16 12:53 11/05/16 12:53 11/05/16 12:53 Course - Vital Signs Vital signs: Temp Pulse Resp BP Pulse Ox 97.9 F 56 L 26 H 143/51 H 95 11/05/16 12:53 11/05/16 12:53 11/05/16 12:53 11/05/16 12:53 11/05/16 12:53
[2016-11-05 13:37] LABS: ABSOLUTE EOSINOPHILS # (AUTO) 0.3 10^3/uL (0.0-0.6); ABSOLUTE LYMPHOCYTES (AUTO) 1.4 10^3/uL (0.5-4.7); ABSOLUTE NEUT (AUTO) 8.7 10^3/uL (1.7-8.2); BASOPHILS % (AUTO) 0.2 % (0-2); EOSINOPHILS % (AUTO) 2.8 % (0-6); HEMATOCRIT 32.3 % (36.0-47.0); HEMOGLOBIN 10.7 g/dL (12.0-15.5); HGB HCT DIFFERENCE -0.2; LYMPHOCYTES % (AUTO) 11.9 % (13-45); MEAN CORPUSCULAR HEMOGLOBIN 29.3 pg (27.0-33.4); MEAN CORPUSCULAR VOLUME 89 fl (80-97); MONOCYTES % (AUTO) 8.5 % (3-13); RED BLOOD COUNT 3.64 10^6/uL (3.72-5.28); RED CELL DISTRIBUTION WIDTH 15.7 % (11.5-14.0); SEGMENTED NEUTROPHILS % (AUTO) 76.6 % (42-78); WHITE BLOOD COUNT 11.4 10^3/uL (4.0-10.5)
[2016-11-05 13:58] LABS: ALANINE AMINOTRANSFERASE 40 U/L (9-52); ALKALINE PHOSPHATASE 73 U/L (38-126); ANION GAP 12 (5-19); ASPARTATE AMINO TRANSFERASE 29 U/L (14-36); BILIRUBIN,TOTAL 0.4 mg/dL (0.2-1.3); BLOOD UREA NITROGEN 24 mg/dL (7-20); CALCIUM 10.1 mg/dL (8.4-10.2); CARBON DIOXIDE 28 mmol/L (22-30); CHLORIDE 102 mmol/L (98-107); CREATINE KINASE 97 U/L (30-135); GLUCOSE 177 mg/dL (75-110); POTASSIUM 4.4 mmol/L (3.6-5.0); SODIUM 141.7 mmol/L (137-145); TOTAL PROTEIN 7.4 g/dL (6.3-8.2)
[2016-11-05 14:10] LABS: CREATINE KINASE MB 2.17 ng/mL (<4.55); TROPONIN I < 0.012 ng/mL
[2016-11-05] MEDS ORDERED: METHYLPREDNISOLONE INJ 125 MG/2 ML SDV IV ONE (16:06)
[2016-11-05] MEDS ORDERED: FUROSEMIDE INJ/PF 40 MG/4 ML SDV IV ONE (16:06)
[2016-11-05] MEDS ORDERED: IPRATROPIUM/ALBUTEROL 0.5-2.5 MG/3 ML AMPUL NEB ONE (16:06)
--- NOTE | 2016-11-05 16:13 | ER Document Report ---
ED General - General Chief Complaint: Breathing Difficulty Stated Complaint: DIFFICULTY BREATHING Time seen by provider: 16:09 Mode of Arrival: Medic - Friendly Information source: Patient Notes: 81-year-old female with history of congestive heart failure pulmonary fibrosis had a recent admission here with pneumonia and was started on oxygen and then discharged [facility] for subacute rehabilitation. She is on oxygen 2 L nasal cannula continuously. She was seen at Dr. Vila's office today for routine schedule follow-up and was noted to be tachypnea With respiratory rate between 30 and 40 and oxygen saturation 98%. A customer tachypnea patient was referred to the emergency department for further evaluation. His notes for my fist document Buffy crackles left greater than right and 3+ edema in lower extremities the patient reports she chronically feels short of breath but states has been worse over the past 2 days. She is also noted 2 day history of lower extremity edema which she says is new. She denies chest pain, abdominal pain, back pain, fever, or productive cough. She reports no recent change in weight. Physical Exam: General: Alert, appears well. HEENT: Normocephalic. Atraumatic. PERRLA. Extraocular movements intact. Oropharynx clear. Neck: Supple. Non-tender. Respiratory: Mildly tachypnea. Crackles in bases bilaterally good aeration no accessory muscle use nontender Cardiovascular: Regular rate and rhythm. Abdominal: Normal Inspection. Soft, non-tender. No distension. Normal Bowel Sounds. Back: Non-tender. No deformity or step off. Upper tremors warm with 2+ pulses no cyanosis Lower extremity is warm to plus pulses no cyanosis 2+ edema from mid calf down no Homans sign bilaterally Neurological: Speech clear mentation normal moves all 4 extremities to command Psychological: Normal affect. Normal Mood. Skin: Warm. Dry. Normal color. TRAVEL OUTSIDE OF THE [place] IN LAST 30 DAYS: No - Related Data Allergies/Adverse Reactions: No Known Allergies Allergy (Verified 11/05/16 13:10) Past Medical History - General Information source: Patient - Social History Smoking Status: Never Smoker Chew tobacco use (# tins/day): No Frequency of alcohol use: None Family History: Reviewed & Not Pertinent Patient has suicidal ideation: No Patient has homicidal ideation: No - Past Medical History Cardiac Medical History: Reports: Hx Coronary Artery Disease - Cardiac stents, Hx Hypertension, Other - She has been told she has 2 bad heart valves but that she would not survive an attempted surgical repair Denies: Hx Heart Attack - BAD HEART VALVES, STENTS X5 Pulmonary Medical History: Reports: Hx COPD, Hx Pneumonia - HX Denies: Hx Asthma, Hx Bronchitis Neurological Medical History: Denies: Hx Cerebrovascular Accident, Hx Seizures Endocrine Medical History: Reports: Hx Diabetes Mellitus Type 2 Renal/ Medical History: Denies: Hx Peritoneal Dialysis GI Medical History: Reports: Hx Gastroesophageal Reflux Disease Musculoskeltal Medical History: Reports Hx Arthritis Psychiatric Medical History: Denies: Hx Depression Past Surgical History: Reports: Hx Cardiac Catheterization, Hx Coronary Stent, Hx Hysterectomy - Immunizations Hx Diphtheria, Pertussis, Tetanus Vaccination: Yes Hx Pneumococcal Vaccination: 05/23/14 Review of Systems - Review of Systems Constitutional: denies: Chills, Fever EENT: denies: Ear pain, Throat pain Cardiovascular: Dyspnea. denies: Chest pain, Syncope Respiratory: See HPI Gastrointestinal: denies: Abdominal pain, Diarrhea, Nausea, Vomiting, Blood in vomit, Black stools, Rectal bleeding Genitourinary: denies: Burning, Dysuria Female Genitourinary: denies: Musculoskeletal: Leg swelling. denies: Back pain Skin: denies: Rash Hematologic/Lymphatic: denies: Swollen glands Neurological/Psychological: denies: Weakness, Numbness Physical Exam - Vital signs Vitals: Temp Pulse Resp BP Pulse Ox 97.9 F 56 L 26 H 143/51 H 95 11/05/16 12:53 11/05/16 12:53 11/05/16 12:53 11/05/16 12:53 11/05/16 12:53 Course - Re-evaluation Re-evalutation: 11/05/16 20:29 Patient reported some improvement in her shortness of breath with treatment. She was presumptively given IV Lasix because of lower extremity swelling her BNP is normal and oblique congestive heart failure exacerbation is responsible for her tachypnea. Patient is also been seen by her primary care physician Dr. Emmanuel pal and I concur that she is safe for discharge as her workup for pneumonia or pulmonary embolism or discharge is been negative. Repeat troponin was also checked and remained negative - Vital Signs Vital signs: Temp Pulse Resp BP Pulse Ox 97.9 F 56 L 21 H 143/51 H 100 11/05/16 12:53 11/05/16 12:53 11/05/16 17:20 11/05/16 12:53 11/05/16 17:20 - Laboratory Result Diagrams: 11/05/16 13:15 11/05/16 13:15 Laboratory results interpreted by me: 11/05/16 11/05/16 13:15 13:15 WBC 11.4 H RBC 3.64 L Hgb 10.7 L Hct 32.3 L RDW 15.7 H Lymphocytes % 11.9 L Absolute Neutrophils 8.7 H BUN 24 H Glucose 177 H - Diagnostic Test Radiology reviewed: Image reviewed, Reports reviewed - EKG Interpretation by Me Additional EKG results interpreted by me: 11/05/16 16:13 EKG reviewed by myself shows sinus rhythm at 81 with first-degree AV block no acute change mild LVH no significant change compared to 07/15/2017 Discharge - Discharge Clinical Impression: Pulmonary fibrosis, Acute respiratory distress Condition: Stable Disposition: REHAB FACILITY Additional Instructions: Continue taking all your medicines that you usually do. 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 Continue using oxygen as you usually do Referrals: CELESTE MELCHOR MD [Primary Care Provider] - Follow up as needed
--- NOTE | 2016-11-05 22:43 | EKG REPORT ---
SEVERITY:- ABNORMAL ECG - SINUS OR ECTOPIC ATRIAL RHYTHM FIRST DEGREE AV BLOCK PROBABLE LEFT VENTRICULAR HYPERTROPHY : Confirmed by: Susie Amato MD 05-Nov-2016 22:41:40
[2016-11-05 22:44] VITALS: BP 143/53
== END 2016-11-05 22:41 ==
LOC: ER 12:37
DX: J84.10 Pulmonary fibrosis, unspecified (principal); R06.00 Dyspnea, unspecified; R06.02 Shortness of breath; Z99.81 Dependence on supplemental oxygen
CPT/HCPCS: 93005; 94640; 99285; 96374; 96375; 36415; 82553; 82550; 85025; 80053; 84484; 83880; 71020; 71275; 93010; J1940; J2930; A9270; J7620

== ENCOUNTER → 2017-12-23 | Outpatient (CLI) | payer MEDICARE, OTHER, MEDICAID ==
--- NOTE | 2017-12-23 15:30 | RADIOLOGY REPORT (SQ) ---
EXAM DESCRIPTION: CT CHEST WITHOUT COMPLETED DATE/TIME: 12/23/2017 1:34 pm REASON FOR STUDY: BRONCHIAL ASTHMA/EXERTIONAL DYSPNEA R91.8 OTHER NONSPECIFIC ABNORMAL FINDING OF L SHERIE FIELD COMPARISON: CT chest 05/30/2014, 01/10/2015, 01/22/2016 TECHNIQUE: CT scan performed of the chest without intravenous contrast. Images reviewed with lung, soft tissue and bone windows. Reconstructed coronal and sagittal MPR images reviewed. All images st ored on PACS. All CT scanners at this facility use dose modulation, iterative reconstruction, and/or weight based d osing when appropriate to reduce radiation dose to as low as reasonably achievable (ALARA). [facility]: Dose Right [facility]: CareDose [facility]: Dose Right [facility]: Teradose 4D [facility]: VasSol RADIATION DOSE: CT Rad equipment meets quality standard of care and radiation dose reduction techniq ues were employed. CTDIvol: 18.9 mGy. DLP: 705 mGy-cm. mGy. LIMITATIONS: No technical limitations. FINDINGS: LUNGS AND PLEURA: A 2.6 x 1.3 cm bandlike scar is present in the anterior aspect of the ri ght upper lobe, unchanged from studies dating back to 2014. Around the periphery of both lungs, thickened interlobular septa are present from pulmonary fibrosis. This is minimally progressive compared to 2014. Calcified granuloma less than 4 mm right upper lobe subpleural location, unchanged from 2014. No acute infiltrates. No pleural effusion. Airways are patent. No pneumothorax. HILAR AND MEDIASTINAL STRUCTURES: No identified masses or abnormal nodes. No obvious aneurysm. HEART AND VASCULAR STRUCTURES: Calcified aortic valve. Coronary artery calcifications and stents are present. UPPER ABDOMEN: Post cholecystectomy THYROID AND OTHER SOFT TISSUES: No masses. No adenopathy. BONES: No significant finding. HARDWARE: None in the chest. OTHER: No other significant findings. IMPRESSION: Stable bandlike scarring right upper lobe anteriorly, as compared to studies dating back to 2014. Stable mild pulmonary fibrosis TECHNICAL DOCUMENTATION: JOB ID: [id number] Quality ID # [id number]: Final reports with documentation of one or more dose reduction techniques (e.g., Au tomated exposure control, adjustment of the mA and/or kV according to patient size, use of iterative reconstruction technique) 2010 [employer]- All Rights Reserved Reading location - IP/workstation name: [email or web address]
== END ==
LOC: RAD 13:03
PROVIDERS: ATTEND Internal Medicine Critical Care Medicine
DX: J84.10 Pulmonary fibrosis, unspecified (principal); J45.40 Moderate persistent asthma, uncomplicated; G47.33 Obstructive sleep apnea (adult) (pediatric); R91.8 Other nonspecific abnormal finding of lung field; R06.00 Dyspnea, unspecified; R05 Cough; Z98.61 Coronary angioplasty status; Z86.79 Personal history of other diseases of the circulatory system
CPT/HCPCS: 71250

== ENCOUNTER → 2018-03-04 | Outpatient (CLI) | payer MEDICARE, OTHER, MEDICAID ==
--- NOTE | 2018-03-04 16:54 | RADIOLOGY REPORT (SQ) ---
EXAM DESCRIPTION: CHEST PA/LATERAL COMPLETED DATE/TIME: 03/04/2018 4:39 pm REASON FOR STUDY: CHEST PAIN,UNSPECIFIED TYPE COMPARISON: October 2016 EXAM PARAMETERS: NUMBER OF VIEWS: two views TECHNIQUE: Digital Frontal and Lateral radiographic views of the chest acquired. RADIATION DOSE: NA LIMITATIONS: none FINDINGS: LUNGS AND PLEURA: No opacities, masses or pneumothorax. No pleural effusion. Chronic appe aring changes are identified. MEDIASTINUM AND HILAR STRUCTURES: No masses or contour abnormalities. HEART AND VASCULAR STRUCTURES: The configuration of the heart mediastinal structures is unchanged BONES: Bony structures are somewhat osteopenic with an exaggerated thoracic kyphosis. HARDWARE: None in the chest. OTHER: Some elevation of the right hemidiaphragm is again seen IMPRESSION: No significant interval change. No acute changes. Other findings as noted above TECHNICAL DOCUMENTATION: JOB ID: [id number] [employer]- All Rights Reserved Reading location - IP/workstation name: [email or web address]
[2018-03-04 17:33] LABS: ABSOLUTE EOSINOPHILS # (AUTO) 0.2 10^3/uL (0.0-0.6); ABSOLUTE LYMPHOCYTES (AUTO) 2.1 10^3/uL (0.5-4.7); ABSOLUTE MONOCYTES (AUTO) 0.9 10^3/uL (0.1-1.4); ABSOLUTE NEUT (AUTO) 7.3 10^3/uL (1.7-8.2); BASOPHILS % (AUTO) 0.5 % (0-2); EOSINOPHILS % (AUTO) 2.1 % (0-6); HEMATOCRIT 39.5 % (36.0-47.0); HEMOGLOBIN 13.7 g/dL (12.0-15.5); LYMPHOCYTES % (AUTO) 19.5 % (13-45); MEAN CORPUSCULAR HEMOGLOBIN 31.1 pg (27.0-33.4); MEAN CORPUSCULAR HGB CONC 34.6 g/dL (32.0-36.0); MEAN CORPUSCULAR VOLUME 90 fl (80-97); MONOCYTES % (AUTO) 8.5 % (3-13); PLATELET COUNT 343 10^3/uL (150-450); RED CELL DISTRIBUTION WIDTH 15.3 % (11.5-14.0); SEGMENTED NEUTROPHILS % (AUTO) 69.4 % (42-78); TOTAL CELLS COUNTED % (AUTO) 100 %; WHITE BLOOD COUNT 10.6 10^3/uL (4.0-10.5)
[2018-03-04 17:52] LABS: ALANINE AMINOTRANSFERASE 39 U/L (9-52); ALBUMIN 4.2 g/dL (3.5-5.0); ALKALINE PHOSPHATASE 72 U/L (38-126); ANION GAP 13 (5-19); ASPARTATE AMINO TRANSFERASE 41 U/L (14-36); BILIRUBIN,DIRECT 0.3 mg/dL (0.0-0.4); BILIRUBIN,TOTAL 0.5 mg/dL (0.2-1.3); BLOOD UREA NITROGEN 18 mg/dL (7-20); CALCIUM 9.8 mg/dL (8.4-10.2); CARBON DIOXIDE 24 mmol/L (22-30); CHLORIDE 105 mmol/L (98-107); CREATINE KINASE 72 U/L (30-135); GLUCOSE 215 mg/dL (75-110); POTASSIUM 4.1 mmol/L (3.6-5.0); SODIUM 142.1 mmol/L (137-145); TOTAL PROTEIN 7.5 g/dL (6.3-8.2)
[2018-03-04 18:05] LABS: CREATINE KINASE MB 0.78 ng/mL (<4.55)
[2018-03-04 18:08] LABS: TROPONIN I < 0.012 ng/mL
== END ==
LOC: OD 16:04
PROVIDERS: ATTEND Physician Assistant
DX: R07.9 Chest pain, unspecified (principal); E03.9 Hypothyroidism, unspecified
CPT/HCPCS: 36415; 71046; 80053; 82550; 82553; 84443; 84484; 85025

== ENCOUNTER → 2018-11-29 | Outpatient (CLI) | payer MEDICARE, OTHER ==
--- NOTE | 2018-11-29 15:46 | RADIOLOGY REPORT (SQ) ---
EXAM DESCRIPTION: CT CHEST WITHOUT COMPLETED DATE/TIME: 11/29/2018 2:54 pm REASON FOR STUDY: OTHER NONSPECIFIC ABNORMAL FINDING OF LUNG FIELD R91.8 OTHER NONSPECIFIC ABNORMAL FINDING OF LUNG FIELD COMPARISON: PET-CT 07/20/2014 CT CHEST 05/30/2014, 01/10/2015, 01/22/2016, 11/05/2016, 12/23/2017 TECHNIQUE: CT scan performed of the chest without intravenous contrast. Images reviewed with lung, soft tissue and bone windows. Reconstructed coronal and sagittal MPR images reviewed. All images st ored on PACS. All CT scanners at this facility use dose modulation, iterative reconstruction, and/or weight based d osing when appropriate to reduce radiation dose to as low as reasonably achievable (ALARA). [facility]: Dose Right [facility]: CareDose [facility]: Dose Right [facility]: Teradose 4D [facility]: Smart indidebt RADIATION DOSE: CT Rad equipment meets quality standard of care and radiation dose reduction techniq ues were employed. CTDIvol: 18.8 mGy. DLP: 665 mGy-cm. mGy. LIMITATIONS: No technical limitations. FINDINGS: LUNGS AND PLEURA: In the anterior aspect of the right upper lobe, a smooth soft tissue den sity nodule is present, unchanged since 2013, benign. This measures 2.8 x 1.3 cm in size. Remainder of the lungs exhibit bandlike scarring at both lung bases and few thickened interlobular se ferry captain around the periphery of both lungs, stable. No acute infiltrates. No pleural effusion or pneumothorax. Airways are patent. HILAR AND MEDIASTINAL STRUCTURES: No identified masses or abnormal nodes. No obvious aneurysm. HEART AND VASCULAR STRUCTURES: No aneurysm. No pericardial effusion. Coronary artery stents are pre sent. Calcified aortic valve UPPER ABDOMEN: Post cholecystectomy THYROID AND OTHER SOFT TISSUES: No masses. No adenopathy. BONES: No significant finding. HARDWARE: None in the chest. OTHER: No other significant findings. IMPRESSION: Stable postinflammatory nodule along the anterior right upper lobe as compared to studie s dating back to 2013 TECHNICAL DOCUMENTATION: JOB ID: [id number] Quality ID # [id number]: Final reports with documentation of one or more dose reduction techniques (e.g., Au tomated exposure control, adjustment of the mA and/or kV according to patient size, use of iterative reconstruction technique) 2010 [employer]- All Rights Reserved Reading location - IP/workstation name: [email or web address]
== END ==
LOC: RAD 14:38
PROVIDERS: ATTEND Internal Medicine Critical Care Medicine
DX: R91.8 Other nonspecific abnormal finding of lung field (principal); J84.10 Pulmonary fibrosis, unspecified; R06.00 Dyspnea, unspecified
CPT/HCPCS: 71250

== ENCOUNTER → 2020-01-23 | Outpatient (CLI) | payer MEDICARE, OTHER, MEDICAID ==
[2020-01-23 14:35] LABS: ABSOLUTE EOSINOPHILS # (AUTO) 0.2 10^3/uL (0.0-0.6); ABSOLUTE LYMPHOCYTES (AUTO) 1.2 10^3/uL (0.5-4.7); ABSOLUTE MONOCYTES (AUTO) 0.7 10^3/uL (0.1-1.4); ABSOLUTE NEUT (AUTO) 7.1 10^3/uL (1.7-8.2); BASOPHILS % (AUTO) 0.5 % (0-2); EOSINOPHILS % (AUTO) 1.7 % (0-6); HEMATOCRIT 26.8 % (36.0-47.0); HEMOGLOBIN 8.3 g/dL (12.0-15.5); LYMPHOCYTES % (AUTO) 13.2 % (13-45); MEAN CORPUSCULAR HEMOGLOBIN 21.5 pg (27.0-33.4); MEAN CORPUSCULAR VOLUME 69 fl (80-97); MONOCYTES % (AUTO) 7.1 % (3-13); PLATELET COUNT 358 10^3/uL (150-450); RED BLOOD COUNT 3.86 10^6/uL (3.72-5.28); RED CELL DISTRIBUTION WIDTH 18.8 % (11.5-14.0); SEGMENTED NEUTROPHILS % (AUTO) 77.5 % (42-78); TOTAL CELLS COUNTED % (AUTO) 100 %; WHITE BLOOD COUNT 9.2 10^3/uL (4.0-10.5)
[2020-01-23 14:52] LABS: ALBUMIN 3.9 g/dL (3.5-5.0); ALKALINE PHOSPHATASE 64 U/L (38-126); ANION GAP 10 (5-19); ASPARTATE AMINO TRANSFERASE 29 U/L (14-36); BILIRUBIN,TOTAL 0.7 mg/dL (0.2-1.3); BLOOD UREA NITROGEN 11 mg/dL (7-20); CALCIUM 9.2 mg/dL (8.4-10.2); CARBON DIOXIDE 23 mmol/L (22-30); CHLORIDE 105 mmol/L (98-107); GLUCOSE 209 mg/dL (75-110); POTASSIUM 4.1 mmol/L (3.6-5.0); TOTAL PROTEIN 7.1 g/dL (6.3-8.2)
--- NOTE | 2020-01-23 14:57 | RADIOLOGY REPORT (SQ) ---
EXAM DESCRIPTION: CHEST PA/LATERAL IMAGES COMPLETED DATE/TIME: 01/23/2020 1:30 pm REASON FOR STUDY: SHORTNESS OF BREATH COMPARISON: 11/05/2016 EXAM PARAMETERS: NUMBER OF VIEWS: two views TECHNIQUE: Digital Frontal and Lateral radiographic views of the chest acquired. RADIATION DOSE: NA LIMITATIONS: none FINDINGS: LUNGS AND PLEURA: Mild chronic interstitial changes. No acute infiltrate or mass. Cannot exclude a small left pleural effusion. MEDIASTINUM AND HILAR STRUCTURES: No masses or contour abnormalities. HEART AND VASCULAR STRUCTURES: Heart normal size. No evidence for failure. BONES: No acute findings. HARDWARE: None in the chest. OTHER: No other significant finding. IMPRESSION: Chronic lung changes. Cannot exclude a small left pleural effusion. TECHNICAL DOCUMENTATION: JOB ID: [id number] [employer]- All Rights Reserved Reading location - IP/workstation name: [email or web address]
[2020-01-23 17:06] LABS: RETICULOCYTE COUNT (AUTO) 3.21 % (0.66-2.85)
[2020-01-23 17:15] LABS: IRON(TIBC) 31.1 ug/dL (37-170)
[2020-01-23 17:50] LABS: FERRITIN 7.88 ng/mL (11.1-264.0)
[2020-01-23 18:22] LABS: FOLATE > 20.00 ng/mL (>2.76)
== END ==
LOC: OD 12:54
PROVIDERS: ATTEND Physician Assistant
DX: R06.02 Shortness of breath (principal); D64.9 Anemia, unspecified
CPT/HCPCS: 36415; 71046; 80053; 82607; 82728; 82746; 83540; 83550; 83880; 84466; 85025; 85045

== ENCOUNTER → 2020-02-12 | Outpatient (CLI) | payer MEDICARE, OTHER, MEDICAID | LOC: SP 14:53 | PROVIDERS: ATTEND Internal Medicine | DX: I50.9 Heart failure, unspecified (principal); I25.10 Atherosclerotic heart disease of native coronary artery without angina pectoris; R06.00 Dyspnea, unspecified | CPT/HCPCS: 93306 ==